=== PATIENT | female | born 1965 | race Caucasian/White ===

== ENCOUNTER 2017-03-08 06:42 | Day surgery (SDC) | payer MEDICARE, MEDICAID ==
[~2017-03-08] VITALS: Ht 152.4 cm; Wt 65.2 kg
[2017-03-08] VITALS (34 sets, daily range): BP systolic 103–143; BP diastolic 58–80; PULSE 54–85; RESP 8–24; TEMP 97.4–97.6; O2SAT 92–100; Ht 152.4 cm; Wt 65.2 kg
[~2017-03-08 06:42] MED LIST: ALBU8.5H INH; ARIP5TAB PO; BUSP15TA3 PO; CITA40TA6 PO; ESTR2TAB23 PO; LEVO88TA7 PO; MELO-267 PO; METF500T4 PO; MIRA50TA PO; PANT40TA27 PO; PHEN100C84 PO; POTA10TA93 PO; PRAV40TA3 PO; SPIR25TA69 PO; TOPI200T45 PO; [UNRECOGNIZED DRUG - CODE] PO; [UNRECOGNIZED DRUG - CODE] PO
--- OUTSIDE RECORDS SUMMARY | 2017-03-08 06:46 | XMS REPORT | Referral Summary ---
Author Author [facility] Organization [facility] Address Unknown Phone Unavailable Care Team Providers Care Phototypesetting Equipment Monitor Name Role Phone No PCP, States Primary Care Physician [phone] Encounter VC Date(s): 07/16/15 - 07/16/15 [facility] [address] [place], [place] [address] Discharge Diagnosis: Microscopic hematuria Discharge Diagnosis: Detrusor instability Discharge Diagnosis: Lumbago Discharge Diagnosis: Lumbago Discharge Diagnosis: Microscopic hematuria Discharge Diagnosis: Detrusor instability Discharge Disposition: 01-Home or Self Care Attending Physician: Biju Manley MD Admitting Physician: Biju Manley MD Vital Signs Most recent to 1 oldest [Reference Range]: Blood Pressure 140/88 mmHg [90-140/60-90 mmHg] (07/16/15 3:44 PM) Problem List Condition Effective Dates Status Health Status Informant Abdominal Active pain(Confirmed) Anxiety(Confirmed) Resolved ASTHMA(Confirmed) Resolved Bladder Active spasms/cramping(Conf irmed) bleeding Active problems(Confirmed) Bronchitis(Confirmed Active ) Chronic Active anxiety(Confirmed) Chronic Active IC(Confirmed) Chronic pelvic pain Active in female(Confirmed) Chronic Active trigonitis(Confirmed ) Constipation(Confirm Active ed) Depression(Confirmed Resolved ) Difficulty in Active urination(Confirmed) small capacity Active bladder(Confirmed) Breath Active shortness(Confirmed) High Active cholesterol(Confirme d) Hyperlipidemia(Confi Resolved rmed) HYPERTENSION(Confirm Resolved ed) Hypothyroidism Active (disorder)(Confirmed ) IBS (irritable bowel Active syndrome)(Confirmed) 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) Irregular heart Active rhythm(Confirmed) Obesity(Confirmed) Active patient Osteoarthritis(Confi Active rmed) Osteoporosis(Confirm Active ed) Peptic ulcer Resolved disease(Confirmed) Personality Resolved disorder(Confirmed) Pituitary Active tumor(Confirmed) Seizure Resolved disorder(Confirmed) Seizures(Confirmed) Active Small bowel Resolved obstruction(Confirme d) Thyroid Active disease/goiter(Confi rmed) Urethral Active stenosis(Confirmed) Urinary Active frequency(Confirmed) Allergies, Adverse Reactions, Alerts Substance Reaction Severity Status penicillin rash Active PHENobarbital patient doesn't feel good Active Medications Abilify 5 mg oral tablet 1.5 tabs, Oral, Daily, # 30 tabs, 0 Refill(s) Start Date: 03/25/14 Status: Ordered benztropine 0.5 mg oral tablet 1 tabs, Oral, Daily, 0 Refill(s) Start Date: 03/25/14 Status: Ordered betaxolol 10 mg oral tablet See Instructions, 0.5 Oral Daily, 0 Refill(s) Start Date: 03/31/14 Status: Ordered busPIRone 30 mg oral tablet 1 tabs, Oral, BID, # 180 tabs, 0 Refill(s) Start Date: 03/25/14 Status: Ordered citalopram 40 mg oral tablet 40 mg 1 tabs, Oral, Daily, # 90 tabs, 0 Refill(s) Start Date: 03/31/15 Status: Ordered Dilantin 100 mg oral capsule, extended release See Instructions, TAKE TWO CAPSULES BY MOUTH TWICE A DAY, # 120 caps, 2 Refill(s ), ALEN, eRx: [facility] #[id number], TAKE TWO CAPSULES BY MOUTH TWICE A DAY Start Date: 03/26/15 Status: Ordered estradiol 2 mg oral tablet See Instructions, TAKE ONE AND ONE-HALF (1 & 1/2) TABLET BY MOUTH DAILY NEED APPOINTMENT BEFORE FURTHER REFILLS, # 45 tabs, eRx: [facility] #[id number], TAKE ONE AND ONE-HALF (1 & 1/2) TABLET BY MOUTH DAILY NEED APPOINTMENT BEFORE FURTHER REFI... Start Date: 10/02/15 Status: Ordered omeprazole 20 mg oral delayed release tablet tabs, Oral, Daily, 0 Refill(s) Start Date: 03/25/14 Status: Ordered potassium chloride 10 mEq oral capsule, extended release 3 caps, Oral, BID, # 180 caps, 0 Refill(s) Start Date: 03/31/14 Status: Ordered Pravachol 20 mg oral tablet 1 tabs, Oral, Daily, # 30 tabs, 0 Refill(s) Start Date: 09/10/14 Status: Ordered spironolactone 25 mg oral tablet See Instructions, TAKE TWO TABLETS BY MOUTH TWICE A DAY, # 240 tabs, eRx: [facility] #[id number], TAKE TWO TABLETS BY MOUTH TWICE A DAY Start Date: 07/01/15 Status: Ordered spironolactone 25 mg oral tablet See Instructions, TAKE TWO TABLETS BY MOUTH TWICE A DAY, # 240 tabs, eRx: [facility] #[id number], TAKE TWO TABLETS BY MOUTH TWICE A DAY Start Date: 05/11/15 Status: Ordered Synthroid 100 mcg (0.1 mg) oral tablet See Instructions, TAKE ONE TABLET BY MOUTH ONCE A DAY, # 30 tabs, 5 Refill(s), ALEN, eRx: [facility] #[id number], TAKE ONE TABLET BY MOUTH ONCE A DAY Start Date: 04/01/15 Status: Ordered tamsulosin 0.4 mg oral capsule 0.4 mg 1 caps, Oral, Bedtime (once a day), # 30 caps, 0 Refill(s), Pharmacy: [facility] #[id number], 1 caps Oral Bedtime (once a day) Start Date: 05/12/15 Status: Ordered Topamax 100 mg oral tablet 1 tabs, Oral, TID, 0 Refill(s) Start Date: 03/25/14 Status: Ordered valACYclovir 1 g oral tablet See Instructions, TAKE TWO TABLETS BY MOUTH TWICE A DAY NEEDS APPT WITH PCP PRIOR TO ADDITIONAL REFILLS, # 8 tabs, 2 Refill(s), Pharmacy: [facility] # [id number], TAKE TWO TABLETS BY MOUTH TWICE A DAY; NEEDS APPT WITH PCP PRIOR TO ADDITIONAL REFILLS Start Date: 07/01/15 Status: Ordered Ventolin HFA 90 mcg/inh inhalation aerosol 2 puffs, Inhalation, q4hr, as needed for wheezing, # 18 g, 2 Refill(s), Pharmacy : [facility] #[id number], 2 puffs Inhalation q4hr,PRN:as needed for wheezing Start Date: 09/17/14 Status: Ordered Results No data available for this section Immunizations Vaccine Date Refusal Reason influenza virus vaccine, inactivated 07/29/14 influenza virus vaccine, live 08/02/13 influenza virus vaccine, live 07/24/12 pneumococcal 23-polyvalent vaccine 08/24/06 Procedures Procedure Date Related Diagnosis Body Site hydrodistention, and SLT laser vaporation 04/30/08 S/P cystoscopy, urethral calibration, and 04/30/08 dilation S/P knee surgery, left 2007 ankle surgery 2003 colon surgery 2001 AL with BSO 2000 S/P knee surgery, right 1982 Appendectomy 1978 Tonsillectomy without adenoidectomy 1966 breast biopsy1 Hysterectomy2 Laparotomy S/P sinus surgery 1x3 2comp 2002 Social History Social History Type Response Smoking Status Never smoker Assessment and Plan Extracted from: Title: Office Visit Note Author: Biju Manley MD Date: 07/16/15 Assessment/Plan 1.Lumbago She agreed to see her new PCP about her back problem. I tried to reassure her that I do not think her painis related to the urinary tract. 3.Detrusor instability I asked her to stop the Vesicareand I gave her samples of Toviaz4 mg daily at bedtime. Risks complications and side effects gone over. She agreed to let me know how that works for her. Follow- up here emphasized. She agreed to return to the officein 2 months time. Around 15 minutes spent todaymostly in discussion.
--- OUTSIDE RECORDS SUMMARY | 2017-03-08 06:46 | XMS REPORT | Referral Summary ---
Author Author [facility] Organization [facility] Address Unknown Phone Unavailable Care Team Providers Care Faculty Research Assistant Name Role Phone No PCP, States Primary Care Physician [phone] Encounter [facility] Date(s): 03/31/15 - 03/31/15 [facility] [address] [place] [address] [facility] Discharge Diagnosis: Hypothyroidism Discharge Diagnosis: Pituitary tumor Discharge Disposition: 01-Home or Self Care Attending Physician: Raymond Tyson MD Admitting Physician: Raymond Tyson MD Vital Signs Most recent to 1 oldest [Reference Range]: Peripheral Pulse 60 bpm Rate [60-100 bpm] (03/31/15 1:50 PM) Blood Pressure 110/60 mmHg [90-140/60-90 mmHg] (03/31/15 1:50 PM) Problem List Condition Effective Dates Status [...] 120 caps, 2 Refill(s ), ALEN, eRx: [facility] #[id number], TAKE TWO CAPSULES BY MOUTH TWICE A DAY Start Date: 03/26/15 Status: Ordered estradiol 2 mg oral tablet See Instructions, TAKE ONE AND ONE-HALF (1 & 1/2) TABLET BY MOUTH DAILY NEED APPOINTMENT BEFORE FURTHER REFILLS, # 45 tabs, eRx: [facility] #[id number], TAKE ONE AND ONE-HALF (1 & 1/2) TABLET BY MOUTH DAILY NEED APPOINTMENT BEFORE FURTHER REFI... Start Date: 07/01/15 Status: Ordered estradiol 2 mg oral tablet See Instructions, TAKE ONE AND ONE-HALF TABLETS BY MOUTH EVERY DAY NEEDS APPT PRIOR TO ADDITIONAL REFILLS, # 45 tabs, 0 Refill(s), Pharmacy: [facility] #[id number], TAKE ONE AND ONE-HALF TABLETS BY MOUTH EVERY DAY; NEEDS APPT PRIOR TO ADDITIONAL... Start Date: 06/08/15 Status: Ordered omeprazole 20 mg oral delayed [...] TWICE A DAY, # 240 tabs, eRx: [facility] #[id number], TAKE TWO TABLETS BY MOUTH TWICE A DAY Start Date: 07/01/15 Status: Ordered spironolactone 25 mg oral tablet See Instructions, TAKE TWO TABLETS BY MOUTH TWICE A DAY, # 240 tabs, eRx: [facility] #[id number], TAKE TWO TABLETS BY MOUTH TWICE A DAY Start Date: 05/11/15 Status: Ordered Synthroid 100 mcg (0.1 mg) oral tablet See Instructions, TAKE ONE TABLET BY MOUTH ONCE A DAY, # 30 tabs, 5 Refill(s), ALEN, eRx: [facility] #[id number], TAKE ONE TABLET BY MOUTH ONCE A DAY Start Date: 04/01/15 Status: Ordered tamsulosin 0.4 mg oral capsule 0.4 mg 1 caps, Oral, Bedtime (once a day), # 30 caps, 0 Refill(s), Pharmacy: [facility] #[id number], 1 caps Oral Bedtime (once a day) Start Date: 05/12/15 Status: Ordered Topamax 100 mg oral tablet 1 tabs, Oral, TID, 0 Refill(s) Start Date: 03/25/14 Status: Ordered valACYclovir 1 g oral tablet See Instructions, TAKE TWO TABLETS BY MOUTH TWICE A DAY NEEDS APPT WITH PCP PRIOR TO ADDITIONAL REFILLS, # 8 tabs, 2 Refill(s), Pharmacy: [facility] # [id number], TAKE TWO TABLETS BY MOUTH TWICE A DAY; NEEDS APPT WITH PCP PRIOR TO ADDITIONAL REFILLS Start Date: 07/01/15 Status: Ordered Ventolin HFA 90 mcg/inh inhalation aerosol 2 puffs, Inhalation, q4hr, as needed for wheezing, # 18 g, 2 Refill(s), Pharmacy : [facility] #[id number], 2 puffs Inhalation q4hr,PRN:as needed for wheezing [...] 2000 S/P knee surgery, right 1982 Appendectomy 1977 Tonsillectomy without adenoidectomy 1966 breast biopsy1 Hysterectomy2 Laparotomy S/P sinus surgery 1x3 2comp 2002 Social History Social History Type Response Smoking Status Never smoker Assessment and Plan Extracted from: Title: Ambulatory Patient Education Author: Raymond Tyson MD Date: 03/31 Family Medicine Hypothyroidism The thyroid is a large gland located in the lower front of your neck. The thyroid gland helps control metabolism. Metabolism is how your body handles food. It controls metabolism with the hormone thyroxine. When this gland is underactive (hypothyroid), it produces too little hormone. CAUSES These include: Absence or destruction of thyroid tissue. Goiter due to iodine deficiency. Goiter due to medications. Congenital defects (since ). Problems with the pituitary. This causes a lack of TSH (thyroid stimulating hormone). This hormone tells the thyroid to returned goods inspector more hormone. SYMPTOMS Lethargy (feeling as though you have no energy) Cold intolerance Weight gain (in spite of normal food intake) Dry skin Coarse hair Menstrual irregularity (if severe, may lead to infertility) Slowing of thought processes Cardiac problems are also caused by insufficient amounts of thyroid hormone. Hypothyroidism in the is cretinism, and is an extreme form. It is important that this form be treated adequately and immediately or it will lead rapidly to retarded physical and mental development. DIAGNOSIS To prove hypothyroidism, your caregiver may do blood tests and ultrasound tests. Sometimes the signs are hidden. It may be necessary for your caregiver to watch this illness with blood tests either before or after diagnosis and treatment. TREATMENT Low levels of thyroid hormone are increased by using synthetic thyroid hormone. This is a safe, effective treatment. It usually takes about four weeks to gain the full effects of the medication. After you have the full effect of the medication, it will generally take another four weeks for problems to leave. Your caregiver may start you on low doses. If you have had heart problems the dose may be gradually increased. It is generally not an emergency to get rapidly to normal. HOME CARE INSTRUCTIONS Take your medications as your caregiver suggests. Let your caregiver know of any medications you are taking or start taking. Your caregiver will help you with dosage schedules. As your condition improves, your dosage needs may increase. It will be necessary to have continuing blood tests as suggested by your caregiver. Report all suspected medication side effects to your caregiver. SEEK MEDICAL CARE IF: Seek medical care if you develop: Sweating. Tremulousness (tremors). Anxiety. Rapid weight loss. Heat intolerance. Emotional swings. Diarrhea. Weakness. SEEK IMMEDIATE MEDICAL CARE IF: You develop chest pain, an irregular heart beat (palpitations ), or a rapid heart beat. MAKE SURE YOU: Understand these instructions. Will watch your condition. Will get help right away if you are not doing well or get worse. Document Released: 10/09/2006 Document Revised: 12/31/2012 Document Reviewed: [facility] Patient Information 2014 [place]. No follow up information was provided. 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 continue same synthroid dose. prolactin is normal. f/u in 1 year. encouraged weight loss and exercise. 2.Hypothyroidism
--- OUTSIDE RECORDS SUMMARY | 2017-03-08 06:47 | XMS REPORT | Referral Summary ---
Author Author [facility] Organization [facility] Address Unknown Phone Unavailable Care Team Providers Care Reeling Machine Operator Name Role Phone PROVIDER, NOTINSYSTEM Primary Care Physician Unavailable Encounter [facility] [id number] Date(s): 03/31/16 - 03/31/16 [facility] [address] [place] [address] [facility] Discharge Diagnosis: Pituitary microadenoma Discharge Diagnosis: Hypothyroidism Discharge Disposition: 01-Home or Self Care Attending Physician: Raymond Tyson MD Admitting Physician: Raymond Tysno MD Vital Signs Most recent to 1 oldest [Reference Range]: Peripheral Pulse 60 bpm Rate [60-100 bpm] (03/31/16 1:47 PM) Blood Pressure 108/76 mmHg [90-140/60-90 mmHg] (03/31/16 1:47 PM) Problem List Condition Effective Dates Status [...] Resolved disease(Confirmed) Personality Resolved disorder(Confirmed) Pituitary Active microadenoma(Confirm ed) Pituitary Active tumor(Confirmed) Seizure Resolved disorder(Confirmed) Seizures(Confirmed) [...] 120 caps, 2 Refill(s ), ALEN, eRx: [facility] #[id number], TAKE TWO CAPSULES BY MOUTH TWICE A DAY Start Date: 03/26/15 Status: Ordered estradiol 2 mg oral tablet See Instructions, TAKE ONE AND ONE-HALF (1 & 1/2) TABLET BY MOUTH DAILY NEED APPOINTMENT BEFORE FURTHER REFILLS, # 45 tabs, eRx: [facility] #[id number], TAKE ONE AND ONE-HALF (1 & 1/2) TABLET BY MOUTH DAILY NEED APPOINTMENT BEFORE FURTHER REFI... Start Date: 10/02/15 Status: Ordered potassium chloride 10 mEq oral capsule, extended release 3 caps, Oral, BID, # 180 caps, 0 Refill(s) Start Date: 03/31/14 Status: Ordered Pravachol 20 mg oral tablet 1 tabs, Oral, Daily, # 30 tabs, 0 Refill(s) Start Date: 09/10/14 Status: Ordered spironolactone 25 mg oral tablet See Instructions, TAKE TWO TABLETS BY MOUTH TWICE A DAY, # 240 tabs, eRx: [facility] #[id number], TAKE TWO TABLETS BY MOUTH TWICE A DAY Start Date: 07/01/15 Status: Ordered spironolactone 25 mg oral tablet See Instructions, TAKE TWO TABLETS BY MOUTH TWICE A DAY, # 240 tabs, eRx: [facility] #[id number], TAKE TWO TABLETS BY MOUTH TWICE A DAY Start Date: 05/11/15 Status: Ordered Synthroid 100 mcg (0.1 mg) oral tablet See Instructions, TAKE ONE TABLET BY MOUTH ONCE A DAY, # 30 tabs, 5 Refill(s), ALEN, eRx: [facility] #[id number], TAKE ONE TABLET BY MOUTH ONCE A DAY Start Date: 04/01/15 Status: Ordered tamsulosin 0.4 mg oral capsule 0.4 mg 1 caps, Oral, Bedtime (once a day), # 30 caps, 0 Refill(s), 1 caps Oral Bedtime (once a day) Start Date: 03/31/16 Status: Ordered Topamax 100 mg oral tablet 1 tabs, Oral, TID, 0 Refill(s) Start Date: 03/25/14 Status: Ordered valACYclovir 1 g oral tablet See Instructions, TAKE TWO TABLETS BY MOUTH TWICE A DAY NEEDS APPT WITH PCP PRIOR TO ADDITIONAL REFILLS, # 8 tabs, 2 Refill(s), Pharmacy: [facility] # [id number], TAKE TWO TABLETS BY MOUTH TWICE A DAY; NEEDS APPT WITH PCP PRIOR TO ADDITIONAL REFILLS Start Date: 07/01/15 Status: Ordered Ventolin HFA 90 mcg/inh inhalation aerosol 2 puffs, Inhalation, q4hr, as needed for wheezing, # 18 g, 2 Refill(s), Pharmacy : [facility] #[id number], 2 puffs Inhalation q4hr,PRN:as needed for wheezing Start Date: 09/17/14 Status: Ordered Results Chemistry Most recent to 1 oldest [Reference Range]: Prolactin [5.2-26.5 9.6 ng/mL ng/mL] (03/31/16 2:21 PM) T4 Free [0.7-1.5 1.0 ng/dL ng/dL] (03/31/16 2:21 PM) TSH [0.35-4.94] 0.08 *LOW* (03/31/16 2:21 PM) Immunizations Vaccine Date Refusal Reason influenza virus [...] Visit Note Author: Raymond Tyson MD Date: 03/31/16 Assessment/Plan 1.Pituitary microadenoma check prolactin. tumor stable on MRI. repeat MRI in 2 years. Ordered: Free T4 Prolactin Level TSH 3rd Generation 2.Hypothyroidism check tsh, ft4. will adjust synthroid dose accordingly. f/ u in 1 year. Ordered: Free T4 Prolactin Level TSH 3rd Generation Orders: tamsulosin, 0.4 mg 1 caps, Oral, Bedtime (once a day), # 30 caps, 0 Refill(s), 1 caps Oral Bedtime (once a day)
--- OUTSIDE RECORDS SUMMARY | 2017-03-08 06:47 | XMS REPORT | Clinical Summary ---
Author Author Admin, E Organization [facility] [employer] Address Unknown Phone Unavailable Allergies, Adverse Reactions, Alerts Allergy Name Reaction Description Start Date Severity Status Provider PHENOBARBITAL Critical Active Ada Sanon MD PENICILLIN Critical Active Ada Sanon MD Conditions or Problems Problem Name Problem Code Onset Date Status Entry Date Provider Comment Standard Description Annotate Overactive Bladder Active Ada Sanon MD Hypertonicity of bladder Medication List Medication Instructions Start Date Stop Date Generic Name NDC Status Provider Patient Instruction MYRBETRIQ 50 MG ORAL [id number] 1 tab by mouth daily MIRABEGRON 44231838106 Active Ada Sanon MD Active POTASSIUM CHLORIDE CR 10 MEQ CPCR 3 capsule by mouth twice daily POTASSIUM CHLORIDE 57013809023 Active Ada Sanon MD Active ESTRADIOL 2 MG ORAL TABS 1 and 1/2 tabs by mouth daily ESTRADIOL 16542304351 Active Ada Sanon MD Active CITALOPRAM HYDROBROMIDE 40 MG ORAL TABS 1 tab by mouth daily CITALOPRAM HYDROBROMIDE 51229476078 Active Ada Sanon MD Active BENZTROPINE MESYLATE 0.5 MG ORAL TABS 2 tabs by mouth daily BENZTROPINE MESYLATE 25354393988 Active Ada Sanon MD Active ABILIFY 5 MG ORAL TABS 1 tab by mouth daily ARIPIPRAZOLE 74008445033 Active Ada Sanon MD Active BUSPIRONE HCL 30 MG ORAL TABS 2 tabs by mouth daily BUSPIRONE HCL 53438907524 Active Ada Sanon MD Active TOPIRAMATE ER 100 MG ORAL CS24 1 tab by mouth three times daily TOPIRAMATE 12813722582 Active Ada Sanon MD Active SPIRONOLACTONE 25 MG TAB 1 tablet by mouth twice daily SPIRONOLACTONE 11725926099 Active Ada Sanon MD Active BETAXOLOL HCL 10 MG ORAL TABS 1/2 tab by mouth daily BETAXOLOL HCL 19968523356 Active Ada Sanon MD Active PRAVASTATIN SODIUM 40 MG TABS 1 po q HS PRAVASTATIN SODIUM 22312007415 Active Ada Sanon MD Active DILANTIN 100 MG CAP 1 cap by mouth twice daily PHENYTOIN SODIUM EXTENDED 41346185480 Active Ada Sanon MD Active PANTOPRAZOLE SODIUM 40 MG TBEC 1 pill by mouth daily PANTOPRAZOLE SODIUM 79526781493 Active Ada Sanon MD Active SYNTHROID 0.088 MG TAB 1 tablet by mouth daily LEVOTHYROXINE SODIUM 89680142544 Active Ada Sanon MD Active Vital Signs Date Name Value Unit Range Description blood pressure, diastolic - 8462-4 70 mm[Hg] BP pearson blood pressure, systolic - 8480-6 125 mm[Hg] BP sys pulse rate E&M - 8867-4 75 /min Heart rate temperature E&M 98.2 [degF] Body temperature weight E&M - 3141-9 150 [lb_av] Weight Measured blood pressure, diastolic - 8462-4 80 mm[Hg] BP pearson blood pressure, systolic - 8480-6 120 mm[Hg] BP sys height E&M - 8302-2 59 [in_us] Bdy height pulse rate E&M - 8867-4 88 /min Heart rate temperature E&M 98.1 [degF] Body temperature weight E&M - 3141-9 145 [lb_av] Weight Measured Diagnostic Results Date Name Value Unit Range Description Office Visit: [facility]-Incontinence - Chemistry RBC, urine, dipstick negative protein, total urine random negative mg/dL Office Visit: [facility]-Incontinence - Urinalysis urinalysis, routine Clean Catch culture status No specific gravity, urine 1.030 pH, urine, semiquantitative 5 ketones, urine, by test strip negative bilirubin, urine negative glucose, urine, semiquantitative negative urine color yellow appearance, urine clear leukocyte esterase, urine, by dipstick negative nitrite, urine, semiquantitative negative urobilinogen, urine, semiquantitative (dipstick) 0.2 protein, urine, semiquantitative (dipstick) negative Encounters Code Encounter Date Provider Facility CPT-83062 Level 3 Est. Patient 16:32:49 FINANCIAL EXAMINER Ada Sanon MD [facility] CPT-65372 Level 3 New Patient 15:57:26 CDT Ada Sanon MD [facility] Procedures Code Procedure Name Date Entry Date Standard Description CPT-81347 Urine Dip (Floor Use Only) 15:57:26 CDT CPT-93123 Bladder Scan 15:57:26 CDT
--- OUTSIDE RECORDS SUMMARY | 2017-03-08 06:47 | XMS REPORT | Referral Summary ---
Author Author [facility] Organization [facility] Address Unknown Phone Unavailable Care Team Providers Care Lay Health Advocate Name Role Phone No PCP, States Primary Care Physician [phone] Encounter VC Date(s): 03/31/15 - 03/31/15 [facility] [address] [place] [address] [facility] Discharge Diagnosis: Hypothyroidism Discharge Diagnosis: [...] ALEN, eRx: [facility] #[id number], TAKE TWO CAPSULES BY MOUTH TWICE A DAY Start Date: 03/26/15 Status: Ordered estradiol 2 mg oral tablet See Instructions, TAKE ONE AND ONE-HALF (1 & 1/2) TABLET BY MOUTH DAILY NEED APPOINTMENT BEFORE FURTHER REFILLS, # 45 tabs, eRx: [facility] #[id number], TAKE ONE AND ONE-HALF (1 & 1/2) TABLET BY MOUTH DAILY NEED APPOINTMENT BEFORE FURTHER REFI... Start Date: 07/01/15 Status: Ordered estradiol 2 mg oral tablet See Instructions, TAKE ONE AND ONE-HALF TABLETS BY MOUTH EVERY DAY NEEDS APPT PRIOR TO ADDITIONAL REFILLS, # 45 tabs, 0 Refill(s), Pharmacy: [facility] #[id number], TAKE ONE AND ONE-HALF TABLETS BY MOUTH [...] tabs, eRx: [facility] #[id number], TAKE TWO TABLETS BY MOUTH TWICE A DAY Start Date: 07/01/15 Status: Ordered spironolactone 25 mg oral tablet See Instructions, TAKE TWO TABLETS BY MOUTH TWICE A DAY, # 240 tabs, eRx: [facility] #[id number], TAKE TWO TABLETS BY MOUTH TWICE A DAY Start Date: 05/11/15 Status: Ordered Synthroid 100 mcg (0.1 mg) oral tablet See Instructions, TAKE ONE TABLET BY MOUTH ONCE A DAY, # 30 tabs, 5 Refill(s), ALEN, eRx: [facility] #[id number], TAKE ONE TABLET BY MOUTH ONCE A DAY Start Date: 04/01/15 Status: Ordered tamsulosin 0.4 mg oral capsule 0.4 mg 1 caps, Oral, Bedtime (once a day), # 30 caps, 0 Refill(s), Pharmacy: [facility] #[id number], 1 caps Oral Bedtime (once a day) Start Date: 05/12/15 Status: Ordered Topamax 100 mg oral tablet 1 tabs, Oral, TID, 0 Refill(s) Start Date: 03/25/14 Status: Ordered valACYclovir 1 g oral tablet See Instructions, TAKE TWO TABLETS BY MOUTH TWICE A DAY NEEDS APPT WITH PCP PRIOR TO ADDITIONAL REFILLS, # 8 tabs, 2 Refill(s), Pharmacy: [facility] # [id number], TAKE TWO TABLETS BY MOUTH TWICE A DAY; NEEDS APPT WITH PCP PRIOR TO ADDITIONAL REFILLS Start Date: 07/01/15 Status: Ordered Ventolin HFA 90 mcg/inh inhalation aerosol 2 puffs, Inhalation, q4hr, as needed for wheezing, # 18 g, 2 Refill(s), Pharmacy : [facility] #[id number], 2 puffs Inhalation q4hr,PRN:as needed for wheezing [...] hormone). 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 SYMPTOMS Lethargy (feeling as though [...] Released: 10/09/2006 Document Revised: 12/31/2012 Document Reviewed: [facility] Patient Information 2014 [employer]. No follow up information was provided. 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 continue same synthroid dose. prolactin is normal. f/u in 1 year. encouraged weight loss and exercise. 2.Hypothyroidism
--- OUTSIDE RECORDS SUMMARY | 2017-03-08 06:47 | XMS REPORT | Continuity of Care Document ---
Author Author [facility] Organization [facility] Address Unknown Phone Unavailable Allergies Medications Problems Procedures Results Encounters ACCT No. Visit Date/Time Discharge Status Pt. Type Provider Facility Loc./Unit Complaint [id number] 01/20/2014 15:01:00 01/20/2014 23 :59:59 CLS Outpatient [id number] 01/10/2014 15:26:00 01/10/2014 23 :59:59 CLS Outpatient
--- OUTSIDE RECORDS SUMMARY | 2017-03-08 06:47 | XMS REPORT | Clinical Summary ---
Author Author Admin, E Organization [facility] Address Unknown Phone Unavailable Allergies, Adverse Reactions, [...] Provider Patient Instruction MYRBETRIQ 50 MG ORAL [id number] 1 tab by mouth daily MIRABEGRON 75486950898 Active Ada Sanon MD Active POTASSIUM CHLORIDE CR 10 MEQ CPCR 3 capsule by mouth twice daily POTASSIUM CHLORIDE 23293443860 Active Ada Sanon MD Active ESTRADIOL 2 MG ORAL TABS 1 and 1/2 tabs by mouth daily ESTRADIOL 31340982090 Active Ada Sanon MD Active CITALOPRAM HYDROBROMIDE 40 MG ORAL TABS 1 tab by mouth daily CITALOPRAM HYDROBROMIDE 26962697713 Active Ada Sanon MD Active BENZTROPINE MESYLATE 0.5 MG ORAL TABS 2 tabs by mouth daily BENZTROPINE MESYLATE 32936601553 Active Ada Sanon MD Active ABILIFY 5 MG ORAL TABS 1 tab by mouth daily ARIPIPRAZOLE 59494880353 Active Ada Sanon MD Active BUSPIRONE HCL 30 MG ORAL TABS 2 tabs by mouth daily BUSPIRONE HCL 29641075761 Active Ada Sanon MD Active TOPIRAMATE ER 100 MG ORAL CS24 1 tab by mouth three times daily TOPIRAMATE 26931450239 Active Ada Sanon MD Active SPIRONOLACTONE 25 MG TAB 1 tablet by mouth twice daily SPIRONOLACTONE 63490767903 Active Ada Sanon MD Active BETAXOLOL HCL 10 MG ORAL TABS 1/2 tab by mouth daily BETAXOLOL HCL 50404460222 Active Ada Sanon MD Active PRAVASTATIN SODIUM 40 MG TABS 1 po q HS PRAVASTATIN SODIUM 81435708959 Active Ada Sanon MD Active DILANTIN 100 MG CAP 1 cap by mouth twice daily PHENYTOIN SODIUM EXTENDED 18849476663 Active Ada Sanon MD Active PANTOPRAZOLE SODIUM 40 MG TBEC 1 pill by mouth daily PANTOPRAZOLE SODIUM 60912891686 Active Ada Sanon MD Active SYNTHROID 0.088 MG TAB 1 tablet by mouth daily LEVOTHYROXINE SODIUM 36175353684 Active Ada Sanon MD Active Vital Signs [...] negative Encounters Code Encounter Date Provider Facility CPT-92126 Level 3 Est. 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
--- OUTSIDE RECORDS SUMMARY | 2017-03-08 06:47 | XMS REPORT | Referral Summary ---
Author Author [facility] Organization [facility] Address Unknown Phone Unavailable Care Team Providers Care Entry Table Operator Name Role Phone No PCP, States Primary Care Physician [phone] Encounter VC Date(s): 03/31/15 - 03/31/15 [facility] [address] [place] [address] [facility] Discharge Diagnosis: Hypothyroidism Discharge Diagnosis: Pituitary tumor [...] 120 caps, 2 Refill(s ), ALEN, eRx: [facility] #[id number], TAKE TWO CAPSULES BY MOUTH TWICE A DAY Start Date: 03/26/15 Status: Ordered estradiol 2 mg oral tablet See Instructions, TAKE ONE AND ONE-HALF (1 & 1/2) TABLET BY MOUTH DAILY NEED APPOINTMENT BEFORE FURTHER REFILLS, # 45 tabs, eRx: [facility] #[id number], TAKE ONE AND ONE-HALF (1 & 1/2) TABLET BY MOUTH DAILY NEED APPOINTMENT BEFORE FURTHER REFI... Start Date: 07/01/15 Status: Ordered estradiol 2 mg oral tablet See Instructions, TAKE ONE AND ONE-HALF TABLETS BY MOUTH EVERY DAY NEEDS APPT PRIOR TO ADDITIONAL REFILLS, # 45 tabs, 0 Refill(s), Pharmacy: [facility] #[id number], TAKE ONE AND ONE-HALF TABLETS BY MOUTH [...] TWICE A DAY, # 240 tabs, eRx: [facility] #[id number], TAKE TWO TABLETS BY MOUTH TWICE A DAY Start Date: 07/01/15 Status: Ordered spironolactone 25 mg oral tablet See Instructions, TAKE TWO TABLETS BY MOUTH TWICE A DAY, # 240 tabs, eRx: [facility] #[id number], TAKE TWO TABLETS BY MOUTH TWICE A DAY Start Date: 05/11/15 Status: Ordered Synthroid 100 mcg (0.1 mg) oral tablet See Instructions, TAKE ONE TABLET BY MOUTH ONCE A DAY, # 30 tabs, 5 Refill(s), ALEN, eRx: [facility] #[id number], TAKE ONE TABLET BY MOUTH ONCE A DAY Start Date: 04/01/15 Status: Ordered tamsulosin 0.4 mg oral capsule 0.4 mg 1 caps, Oral, Bedtime (once a day), # 30 caps, 0 Refill(s), Pharmacy: [facility] #[id number], 1 caps Oral Bedtime (once a day) Start Date: 05/12/15 Status: Ordered Topamax 100 mg oral tablet 1 tabs, Oral, TID, 0 Refill(s) Start Date: 03/25/14 Status: Ordered valACYclovir 1 g oral tablet See Instructions, TAKE TWO TABLETS BY MOUTH TWICE A DAY NEEDS APPT WITH PCP PRIOR TO ADDITIONAL REFILLS, # 8 tabs, 2 Refill(s), Pharmacy: [facility] # [id number], TAKE TWO TABLETS BY MOUTH TWICE A DAY; NEEDS APPT WITH PCP PRIOR TO ADDITIONAL REFILLS Start Date: 07/01/15 Status: Ordered Ventolin HFA 90 mcg/inh inhalation aerosol 2 puffs, Inhalation, q4hr, as needed for wheezing, # 18 g, 2 Refill(s), Pharmacy : [facility] #[id number], 2 puffs Inhalation q4hr,PRN:as needed for wheezing [...] hormone). This hormone tells the thyroid to metal turner more hormone. SYMPTOMS Lethargy (feeling as though [...] Released: 10/09/2006 Document Revised: 12/31/2012 Document Reviewed: [facility] Patient Information 2014 [employer]. No follow up information was provided. 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 continue same synthroid dose. prolactin is normal. f/u in 1 year. encouraged weight loss and exercise. 2.Hypothyroidism
--- OUTSIDE RECORDS SUMMARY | 2017-03-08 06:47 | XMS REPORT | Referral Summary ---
Author Organization Unknown Address Unknown Phone Unavailable Care Team Providers Care Cloth Carrier Name Role Phone Jesus Dozier Primary Care Physician [phone] Encounter VC Date(s): 12/12/14 - 12/12/14 [facility], [place] [address] [place] [address] Discharge Disposition: Home or Self Care Attending Physician: Ruperto Dozier MD Admitting Physician: Ruperto Dozier MD Vital Signs Most recent to 1 oldest [Reference Range]: Blood Pressure 120/74 mmHg [90-140/60-90 mmHg] (12/12/14 1:45 PM) Problem List Condition Effective Dates Status [...] Active mental condition(Confirmed) Irregular heart Active rhythm(Confirmed) Osteoarthritis(Confi Active rmed) Osteoporosis(Confirm Active ed) Peptic [...] See Instructions, 0.5 Oral Daily, 0 Refill(s) Special Instructions: 0.5 Oral Daily Start Date: 03/31/14 Status: Ordered busPIRone 30 mg oral tablet 1 tabs, Oral, BID, # 180 tabs, 0 Refill(s) Start Date: 03/25/14 Status: Ordered citalopram 20 mg oral tablet 1 tabs, Oral, Daily, # 30 tabs, 0 Refill(s) Start Date: 03/25/14 Status: Ordered CPAP Machine (DME) DME Item at bedtime, See Instructions, # 1 Each, 0 Refill(s), Supply Special Instructions: at bedtime Start Date: 10/06/14 Status: Ordered Dilantin 100 mg oral capsule, extended release See Instructions, TAKE TWO CAPSULES BY MOUTH TWICE A DAY, # 120 caps, ALEN, eRx: [facility] #[id number], TAKE TWO CAPSULES BY MOUTH TWICE A DAY Special Instructions: TAKE TWO CAPSULES BY MOUTH TWICE A DAY Start Date: 11/24/14 Status: Ordered estradiol 2 mg oral tablet See Instructions, TAKE ONE AND ONE-HALF TABLETS BY MOUTH EVERY DAY, # 45 tabs, 2 Refill(s), eRx: [facility] #[id number], TAKE ONE AND ONE-HALF TABLETS BY MOUTH EVERY DAY Special Instructions: TAKE ONE AND ONE-HALF TABLETS BY MOUTH EVERY DAY Start Date: 10/06/14 Status: Ordered Flomax 0.4 mg oral capsule See Instructions, TAKE ONE CAPSULE BY MOUTH EVERY NIGHT AT BEDTIME, # 30 caps, 2 Refill(s), eRx: [facility] #[id number], TAKE ONE CAPSULE BY MOUTH EVERY NIGHT AT BEDTIME Special Instructions: TAKE ONE CAPSULE BY MOUTH EVERY NIGHT AT BEDTIME Start Date: 11/06/14 Status: Ordered omeprazole 20 mg oral delayed [...] MOUTH TWICE A DAY, # 240 tabs, 2 Refill(s) , eRx: [facility] #[id number], TAKE TWO TABLETS BY MOUTH TWICE A DAY Special Instructions: TAKE TWO TABLETS BY MOUTH TWICE A DAY Start Date: 11/06/14 Status: Ordered Synthroid 100 mcg (0.1 mg) oral tablet See Instructions, TAKE ONE TABLET BY MOUTH EVERY DAY, # 30 tabs, 6 Refill(s), ALEN, eRx: [facility] #[id number], TAKE ONE TABLET BY MOUTH EVERY DAY Special Instructions: TAKE ONE TABLET BY MOUTH EVERY DAY Start Date: 06/03/14 Status: Ordered Topamax 100 mg oral tablet 1 tabs, Oral, TID, 0 Refill(s) Start Date: 03/25/14 Status: Ordered valACYclovir 1 g oral tablet 2 tabs, Oral, BID, # 8 tabs, 0 Refill(s), Pharmacy: [facility] #[id number], 2 tabs Oral BID Start Date: 12/12/14 Status: Ordered Ventolin HFA 90 mcg/inh inhalation aerosol 2 puffs, Inhalation, q4hr, as needed for wheezing, # 18 g, 2 Refill(s), Pharmacy : [facility] #[id number], 2 puffs Inhalation q4hr,PRN:as needed for wheezing Start Date: 09/17/14 Status: Ordered Zithromax Z-Dilip 250 mg oral tablet 1 packets, Oral, Daily, as directed on package labeling, X 5 days, # 6 tabs, 1 Refill(s), Pharmacy: [facility] #[id number], 1 packets Oral Daily,x5 days, Instr:as directed on package labeling Special Instructions: as directed on package labeling Start Date: 12/12/14 Stop Date: 12/22/14 Status: Ordered Results No data available for this section Immunizations Vaccine Date Refusal Reason influenza virus vaccine, inactivated 10/7/14 influenza virus vaccine, live 08/02/13 influenza virus [...] Smoking Status Never smoker Assessment and Plan No data available for this section
--- OUTSIDE RECORDS SUMMARY | 2017-03-08 06:47 | XMS REPORT | Referral Summary ---
Author Author [facility] Organization [facility] Address Unknown Phone Unavailable Care Team Providers Care Material Cutter Name Role Phone No PCP, States Primary Care Physician [phone] Encounter VC Date(s): 08/10/15 - 08/10/15 [facility] [address] [place], [place] [address] Discharge Diagnosis: Constipation Discharge Diagnosis: Loss of weight Discharge Disposition: 01-Home or Self Care Attending Physician: Milagro Gonzalez MD Admitting Physician: Milagro Gonzalez MD Vital Signs Most recent to 1 oldest [Reference Range]: Peripheral Pulse 72 bpm Rate [60-100 bpm] (08/10/15 2:30 PM) Blood Pressure 122/82 mmHg [90-140/60-90 mmHg] (08/10/15 2:30 PM) Problem List Condition Effective Dates Status [...] 120 caps, 2 Refill(s ), ALEN, eRx: [facility] #[id number], TAKE TWO CAPSULES BY MOUTH TWICE A DAY Start Date: 03/26/15 Status: Ordered estradiol 2 mg oral tablet See Instructions, TAKE ONE AND ONE-HALF (1 & 1/2) TABLET BY MOUTH DAILY NEED APPOINTMENT BEFORE FURTHER REFILLS, # 45 tabs, eRx: [facility] #[id number], TAKE ONE AND ONE-HALF (1 & 1/2) [...] TWICE A DAY, # 240 tabs, eRx: [facility] #[id number], TAKE TWO TABLETS BY MOUTH TWICE A DAY Start Date: 07/01/15 Status: Ordered spironolactone 25 mg oral tablet See Instructions, TAKE TWO TABLETS BY MOUTH TWICE A DAY, # 240 tabs, eRx: [facility] #[id number], TAKE TWO TABLETS BY MOUTH TWICE A DAY Start Date: 05/11/15 Status: Ordered Synthroid 100 mcg (0.1 mg) oral tablet See Instructions, TAKE ONE TABLET BY MOUTH ONCE A DAY, # 30 tabs, 5 Refill(s), ALEN, eRx: [facility] #[id number], TAKE ONE TABLET BY MOUTH ONCE A DAY Start Date: 04/01/15 Status: Ordered tamsulosin 0.4 mg oral capsule 0.4 mg 1 caps, Oral, Bedtime (once a day), # 30 caps, 0 Refill(s), Pharmacy: [facility] #[id number], 1 caps Oral Bedtime (once a day) Start Date: 05/12/15 Status: Ordered Topamax 100 mg oral tablet 1 tabs, Oral, TID, 0 Refill(s) Start Date: 03/25/14 Status: Ordered valACYclovir 1 g oral tablet See Instructions, TAKE TWO TABLETS BY MOUTH TWICE A DAY NEEDS APPT WITH PCP PRIOR TO ADDITIONAL REFILLS, # 8 tabs, 2 Refill(s), Pharmacy: [facility] # [id number], TAKE TWO TABLETS BY MOUTH TWICE A DAY; NEEDS APPT WITH PCP PRIOR TO ADDITIONAL REFILLS Start Date: 07/01/15 Status: Ordered Ventolin HFA 90 mcg/inh inhalation aerosol 2 puffs, Inhalation, q4hr, as needed for wheezing, # 18 g, 2 Refill(s), Pharmacy : [facility] #[id number], 2 puffs Inhalation q4hr,PRN:as needed for wheezing [...] Extracted from: Title: Office Visit Note Author: Milagro Gonzalez MD Date: 08/10/15 Assessment/Plan 1.Constipation Discussed with patientabout the importance of fiberand that she requires fiber supplementation to add bulk to her stool. Discussed that shedoes not need to take stool softeners or milk of magnesia as she is having soft stools daily. Counseled at length about high-fiber dietand need forfiber supplementation. She will take Metamucil 2 times a day for 2 weeks. If no improvement in symptoms, she will add MiraLAXonce daily. I encouraged the patient to eatwelland reassured her thatit will not worsen her symptoms. 2.Loss of weight This patient has hadsome weight loss over the last 2 monthsand her says that she hasn't been eating muchbecause she is worried about the constipation. I have encouraged the patient to eat well. She does not have any other alarm symptoms likehematochezia or melena. Colonoscopy was just 1 year ago. She also had abdomen and pelvis CT a year ago. We will monitor her weight for now. I have asked her to return to clinic in 2 months. If there is continued weight loss, shemay needfurther workupwith EGD, thyroid testing etc. Total time spent with the patient was25 minutes and more than 50 percent of the time was crwx-qm-wtcl counseling. Extracted from: Title: Ambulatory Patient Education Author: Milagro Gonzalez MD Date: Family Medicine High-Fiber Diet Fiber is found in fruits, vegetables, and grains. A high-fiber diet encourages the addition of more whole grains, legumes, fruits, and vegetables in your diet. The recommended amount of fiber for adult males is 38 g per day. For adult females, it is 25 g per day. and lactating women should get 28 g of fiber per day. If you have a digestive or bowel problem, ask your caregiver for advice before adding high-fiber foods to your diet. Eat a variety of high- fiber foods instead of only a select few type of foods. PURPOSE To increase stool bulk. To make bowel movements more regular to prevent constipation. To lower cholesterol. To prevent overeating. WHEN IS THIS DIET USED? It may be used if you have constipation and hemorrhoids. It may be used if you have uncomplicated diverticulosis (intestine condition) and irritable bowel syndrome. It may be used if you need help with weight management. It may be used if you want to add it to your diet as a protective measure against atherosclerosis, diabetes, and cancer. SOURCES OF FIBER Whole-grain breads and cereals. Fruits, such as apples, oranges, bananas, berries, prunes, and pears. Vegetables, such as green peas, carrots, sweet potatoes, beets, broccoli, cabbage, spinach, and artichokes. Legumes, such split peas, soy, lentils. Almonds. FIBER CONTENT IN FOODS Starches and Grains / Dietary Fiber (g) Cheerios, 1 cup / 3 g [place] Flakes cereal, 1 cup / 0.7 g Rice crispy treat cereal, 1 cup / 0.3 g Instant oatmeal (cooked), cup / 2 g Frosted wheat cereal, 1 cup / 5.1 g Brown, long-grain rice (cooked), 1 cup / 3.5 g White, long-grain rice (cooked), 1 cup / 0.6 g Enriched macaroni (cooked), 1 cup / 2.5 g Legumes / Dietary Fiber (g) Baked beans (canned, plain, or vegetarian), cup / 5.2 g Kidney beans (canned), cup / 6.8 g Jain beans (cooked), cup / 5.5 g Breads and Crackers / Dietary Fiber (g) Plain or honey spencer crackers, 2 squares / 0.7 g Saltine crackers, 3 squares / 0.3 g Plain, salted pretzels, 10 pieces / 1.8 g Whole-wheat bread, 1 slice / 1.9 g White bread, 1 slice / 0.7 g Raisin bread, 1 slice / 1.2 g Plain bagel, 3 oz / 2 g Flour tortilla, 1 oz / 0.9 g [place] tortilla, 1 small / 1.5 g Hamburger or hotdog bun, 1 small / 0.9 g Fruits / Dietary Fiber (g) Apple with skin, 1 medium / 4.4 g Sweetened applesauce, cup / 1.5 g Banana, medium / 1.5 g Grapes, 10 grapes / 0.4 g [place], 1 small / 2.3 g Raisin, 1.5 oz / 1.6 g Melon, 1 cup / 1.4 g Vegetables / Dietary Fiber (g) Green beans (canned), cup / 1.3 g Carrots (cooked), cup / 2.3 g Broccoli (cooked), cup / 2.8 g Peas (cooked), cup / 4.4 g Mashed potatoes, cup / 1.6 g Lettuce, 1 cup / 0.5 g [place] (canned), cup / 1.6 g Tomato, cup / 1.1 g Document Released: 10/09/2006 Document Revised: 04/09/2013 Document Reviewed: [employer] Patient Information 2015 [employer] [facility]. This information is not intended to replace advice given to you by your health care provider. Make sure you discuss any questions you have with your health care provider. Constipation Constipation is when a person has fewer than three bowel movements a week, has difficulty having a bowel movement, or has stools that are dry, hard, or larger than normal. As people grow older, constipation is more common. If you try to fix constipation with medicines that make you have a bowel movement (laxatives) , the problem may get worse. Long-term laxative use may cause the muscles of the colon to become weak. A low-fiber diet, not taking in enough fluids, and taking certain medicines may make constipation worse. CAUSES Certain medicines, such as antidepressants, pain medicine, iron supplements , antacids, and water pills. Certain diseases, such as diabetes, irritable bowel syndrome (IBS), thyroid disease, or depression. Not drinking enough water. Not eating enough fiber-rich foods. Stress or travel. Lack of physical activity or exercise. Ignoring the urge to have a bowel movement. Using laxatives too much. SIGNS AND SYMPTOMS Having fewer than three bowel movements a week. Straining to have a bowel movement. Having stools that are hard, dry, or larger than normal. Feeling full or bloated. Pain in the lower abdomen. Not feeling relief after having a bowel movement. DIAGNOSIS Your health care provider will take a medical history and perform a physical exam. Further testing may be done for severe constipation. Some tests may include: A barium enema X-ray to examine your rectum, colon, and, sometimes, your small intestine. A sigmoidoscopy to examine your lower colon. A colonoscopy to examine your entire colon. TREATMENT Treatment will depend on the severity of your constipation and what is causing it. Some dietary treatments include drinking more fluids and eating more fiber- rich foods. Lifestyle treatments may include regular exercise. If these diet and lifestyle recommendations do not help, your health care provider may recommend taking lwte-zuy-trnsxbm laxative medicines to help you have bowel movements. Prescription medicines may be prescribed if jfut-itk-yamvyer medicines do not work. HOME CARE INSTRUCTIONS Eat foods that have a lot of fiber, such as fruits, vegetables, whole grains, and beans. Limit foods high in fat and processed sugars, such as mohawk fries, hamburgers, cookies, candies, and soda. A fiber supplement may be added to your diet if you cannot get enough fiber from foods. Drink enough fluids to keep your urine clear or pale yellow. Exercise regularly or as directed by your health care provider. Go to the restroom when you have the urge to go. Do not hold it. Only take oina-vng-dfqneig or prescription medicines as directed by your health care provider. Do not take other medicines for constipation without talking to your health care provider first. SEEK IMMEDIATE MEDICAL CARE IF: You have bright red blood in your stool. Your constipation lasts for more than 4 days or gets worse. You have abdominal or rectal pain. You have thin, pencil-like stools. You have unexplained weight loss. MAKE SURE YOU: Understand these instructions. Will watch your condition. Will get help right away if you are not doing well or get worse. Document Released: 07/07/2005 Document Revised: 10/14/2014 Document Reviewed: [facility] Patient Information 2015 [employer]. This information is not intended to replace advice given to you by your health care provider. Make sure you discuss any questions you have with your health care provider. No follow up information was provided.
--- OUTSIDE RECORDS SUMMARY | 2017-03-08 06:47 | XMS REPORT | Referral Summary ---
Author Author [facility] Organization [facility] Address Unknown Phone Unavailable Care Team Providers Care Salmon Gillnet Vessel Operator Name Role Phone No PCP, States Primary Care Physician [phone] Encounter VC Date(s): 03/31/15 - 03/31/15 [facility] [address] [place] [address] [facility] Discharge Diagnosis: Hypothyroidism Discharge Diagnosis: Pituitary [...] 120 caps, 2 Refill(s ), ALEN, eRx: [facility] #[id number], TAKE TWO CAPSULES BY MOUTH TWICE A DAY Start Date: 03/26/15 Status: Ordered estradiol 2 mg oral tablet See Instructions, TAKE ONE AND ONE-HALF (1 & 1/2) TABLET BY MOUTH DAILY NEED APPOINTMENT BEFORE FURTHER REFILLS, # 45 tabs, eRx: [facility] #[id number], TAKE ONE AND ONE-HALF (1 & 1/2) [...] TWICE A DAY, # 240 tabs, eRx: [facility] #[id number], TAKE TWO TABLETS BY MOUTH TWICE A DAY Start Date: 07/01/15 Status: Ordered spironolactone 25 mg oral tablet See Instructions, TAKE TWO TABLETS BY MOUTH TWICE A DAY, # 240 tabs, eRx: [facility] #[id number], TAKE TWO TABLETS BY MOUTH TWICE A DAY Start Date: 05/11/15 Status: Ordered Synthroid 100 mcg (0.1 mg) oral tablet See Instructions, TAKE ONE TABLET BY MOUTH ONCE A DAY, # 30 tabs, 5 Refill(s), ALEN, eRx: [facility] #[id number], TAKE ONE TABLET BY MOUTH ONCE A DAY Start Date: 04/01/15 Status: Ordered tamsulosin 0.4 mg oral capsule 0.4 mg 1 caps, Oral, Bedtime (once a day), # 30 caps, 0 Refill(s), Pharmacy: [facility] #[id number], 1 caps Oral Bedtime (once a day) Start Date: 05/12/15 Status: Ordered Topamax 100 mg oral tablet 1 tabs, Oral, TID, 0 Refill(s) Start Date: 03/25/14 Status: Ordered valACYclovir 1 g oral tablet See Instructions, TAKE TWO TABLETS BY MOUTH TWICE A DAY NEEDS APPT WITH PCP PRIOR TO ADDITIONAL REFILLS, # 8 tabs, 2 Refill(s), Pharmacy: [facility] # [id number], TAKE TWO TABLETS BY MOUTH TWICE A DAY; NEEDS APPT WITH PCP PRIOR TO ADDITIONAL REFILLS Start Date: 07/01/15 Status: Ordered Ventolin HFA 90 mcg/inh inhalation aerosol 2 puffs, Inhalation, q4hr, as needed for wheezing, # 18 g, 2 Refill(s), Pharmacy : [facility] #[id number], 2 puffs Inhalation q4hr,PRN:as needed for wheezing [...] hormone). This hormone tells the thyroid to last turner more hormone. SYMPTOMS Lethargy (feeling as [...] Released: 10/09/2006 Document Revised: 12/31/2012 Document Reviewed: [facility] Patient Information 2014 [place]. No follow up information was provided. 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 continue same synthroid dose. prolactin is normal. f/u in 1 year. encouraged weight loss and exercise. 2.Hypothyroidism
--- OUTSIDE RECORDS SUMMARY | 2017-03-08 06:47 | XMS REPORT | Referral Summary ---
Author Author [facility], [facility] Organization [facility] Address Unknown Phone Unavailable Care Team Providers Care Police Magistrate Name Role Phone No PCP, States Primary Care Physician [phone] Encounter Date(s): 05/06/15 - 05/06/15 [facility] [address] [place] [address] Discharge Diagnosis: Well female exam with routine gynecological exam Discharge Diagnosis: Nocturia Discharge Diagnosis: Nipple discharge Discharge Diagnosis: Dysuria Discharge Diagnosis: Vaginal discomfort Discharge Disposition: -Home or Self Care Attending Physician: Maritza Cochran APRN Admitting Physician: Maritza Cochran APRN Vital Signs Most recent to 1 oldest [Reference Range]: Peripheral Pulse 72 bpm Rate [60-100 bpm] (05/06/15 10:15 AM) Blood Pressure 126/78 mmHg [90-140/60-90 mmHg] (05/06/15 10:15 AM) Problem List Condition Effective Dates Status Health [...] 120 caps, 2 Refill(s ), ALEN, [facility] #[id number], TAKE TWO CAPSULES BY MOUTH TWICE A DAY Start Date: 03/26/15 Status: Ordered estradiol 2 mg oral tablet See Instructions, TAKE ONE AND ONE-HALF (1 & 1/2) TABLET BY MOUTH DAILY NEED APPOINTMENT BEFORE FURTHER REFILLS, # 45 tabs, [facility] #[id number], TAKE ONE AND ONE-HALF (1 & 1/2) [...] TWICE A DAY, # 240 tabs, eRx: [facility] #[id number], TAKE TWO TABLETS BY MOUTH TWICE A DAY Start Date: 07/01/15 Status: Ordered spironolactone 25 mg oral tablet See Instructions, TAKE TWO TABLETS BY MOUTH TWICE A DAY, # 240 tabs, eRx: [facility] #[id number], TAKE TWO TABLETS BY MOUTH TWICE A DAY Start Date: 05/11/15 Status: Ordered Synthroid 100 mcg (0.1 mg) oral tablet See Instructions, TAKE ONE TABLET BY MOUTH ONCE A DAY, # 30 tabs, 5 Refill(s), ALEN, eRx: [facility] #[id number], TAKE ONE TABLET BY MOUTH ONCE A DAY Start Date: 04/01/15 Status: Ordered tamsulosin 0.4 mg oral capsule 0.4 mg 1 caps, Oral, Bedtime (once a day), # 30 caps, 0 Refill(s), Pharmacy: [facility] #[id number], 1 caps Oral Bedtime (once a day) Start Date: 05/12/15 Status: Ordered Topamax 100 mg oral tablet 1 tabs, Oral, TID, 0 Refill(s) Start Date: 03/25/14 Status: Ordered valACYclovir 1 g oral tablet See Instructions, TAKE TWO TABLETS BY MOUTH TWICE A DAY NEEDS APPT WITH PCP PRIOR TO ADDITIONAL REFILLS, # 8 tabs, 2 Refill(s), Pharmacy: [facility] # [id number], TAKE TWO TABLETS BY MOUTH TWICE A DAY; NEEDS APPT WITH PCP PRIOR TO ADDITIONAL REFILLS Start Date: 07/01/15 Status: Ordered Ventolin HFA 90 mcg/inh inhalation aerosol 2 puffs, Inhalation, q4hr, as needed for wheezing, # 18 g, 2 Refill(s), Pharmacy : [facility] #[id number], 2 puffs Inhalation q4hr,PRN:as needed for wheezing Start Date: 09/17/14 Status: Ordered Results Microbiology Reports TEST: Genital Culture STATUS: Auth (Verified) BODY SITE: SOURCE: Vaginal COLLECTED DATE/TIME: 05/06/15 11:21 AM Genital Culture No pathogens isolated Normal vaginal nitish present Immunizations Vaccine Date Refusal Reason influenza virus [...]
--- OUTSIDE RECORDS SUMMARY | 2017-03-08 06:48 | XMS REPORT | Referral Summary ---
Author Author [facility] Organization [facility] Address Unknown Phone Unavailable Care Team Providers Care Med Aide Name Role Phone Jesus Dozier Primary Care Physician [phone] Encounter VC Date(s): 07/16/15 - 07/16/15 [facility] [address] [place], [place] [address] Discharge Diagnosis: Microscopic hematuria Discharge Diagnosis: Detrusor instability Discharge Diagnosis: Lumbago Discharge Disposition: -Home or Self Care Attending Physician: Biju Manley [...] 0 Refill(s) Start Date: 03/31/15 Status: Ordered CPAP Machine (DME) DME Item at bedtime, See Instructions, # 1 Each, 0 Refill(s), Supply Start Date: 10/06/14 Status: Ordered Dilantin 100 mg oral capsule, extended release See Instructions, TAKE TWO CAPSULES BY MOUTH TWICE A DAY, # 120 caps, 2 Refill(s ), ALEN, eRx: [facility] #[id number], TAKE TWO CAPSULES BY MOUTH TWICE A DAY Start Date: 03/26/15 Status: Ordered estradiol 2 mg oral tablet See Instructions, TAKE ONE AND ONE-HALF (1 & 1/2) TABLET BY MOUTH DAILY NEED APPOINTMENT BEFORE FURTHER REFILLS, # 45 tabs, eRx: [facility] #[id number], TAKE ONE AND ONE-HALF (1 & 1/2) TABLET BY MOUTH DAILY NEED APPOINTMENT BEFORE FURTHER REFI... Start Date: 07/01/15 Status: Ordered estradiol 2 mg oral tablet See Instructions, TAKE ONE AND ONE-HALF TABLETS BY MOUTH EVERY DAY NEEDS APPT PRIOR TO ADDITIONAL REFILLS, # 45 tabs, 0 Refill(s), Pharmacy: [facility] #[id number], TAKE ONE AND ONE-HALF TABLETS BY MOUTH EVERY DAY; NEEDS APPT PRIOR TO ADDITIONAL... Start Date: 06/08/15 Status: Ordered Flomax 0.4 mg oral capsule See Instructions, TAKE ONE CAPSULE BY MOUTH EVERY NIGHT AT BEDTIME, # 30 caps, 1 Refill(s), eRx: [facility] #[id number], TAKE ONE CAPSULE BY MOUTH EVERY NIGHT AT BEDTIME Start Date: 02/20/15 Status: Ordered omeprazole 20 mg oral delayed [...] TWICE A DAY, # 240 tabs, eRx: [facility] #[id number], TAKE TWO TABLETS BY MOUTH TWICE A DAY Start Date: 07/01/15 Status: Ordered spironolactone 25 mg oral tablet See Instructions, TAKE TWO TABLETS BY MOUTH TWICE A DAY, # 240 tabs, eRx: [facility] #[id number], TAKE TWO TABLETS BY MOUTH TWICE A DAY Start Date: 05/11/15 Status: Ordered Synthroid 100 mcg (0.1 mg) oral tablet See Instructions, TAKE ONE TABLET BY MOUTH ONCE A DAY, # 30 tabs, 5 Refill(s), ALEN, eRx: [facility] #[id number], TAKE ONE TABLET BY MOUTH ONCE A DAY Start Date: 04/01/15 Status: Ordered tamsulosin 0.4 mg oral capsule 0.4 mg 1 caps, Oral, Bedtime (once a day), # 30 caps, 0 Refill(s), Pharmacy: [facility] #[id number], 1 caps Oral Bedtime (once a day) Start Date: 05/12/15 Status: Ordered Topamax 100 mg oral tablet 1 tabs, Oral, TID, 0 Refill(s) Start Date: 03/25/14 Status: Ordered valACYclovir 1 g oral tablet See Instructions, TAKE TWO TABLETS BY MOUTH TWICE A DAY NEEDS APPT WITH PCP PRIOR TO ADDITIONAL REFILLS, # 8 tabs, 2 Refill(s), Pharmacy: [facility] # [id number], TAKE TWO TABLETS BY MOUTH TWICE A DAY; NEEDS APPT WITH PCP PRIOR TO ADDITIONAL REFILLS Start Date: 07/01/15 Status: Ordered Ventolin HFA 90 mcg/inh inhalation aerosol 2 puffs, Inhalation, q4hr, as needed for wheezing, # 18 g, 2 Refill(s), Pharmacy : [facility] #[id number], 2 puffs Inhalation q4hr,PRN:as needed for wheezing [...]
--- OUTSIDE RECORDS SUMMARY | 2017-03-08 06:48 | XMS REPORT | Referral Summary ---
Author Author [facility] Organization [facility] Address Unknown Phone Unavailable Care Team Providers Care Alcoholic Counselor Name Role Phone No PCP, States Primary Care Physician [phone] Encounter VC Date(s): 05/25/15 - 05/25/15 [facility] [address] [place], [place] [address] Discharge Diagnosis: Urinary incontinence Discharge Disposition: 01-Home or Self Care Attending Physician: Biju Manley MD Admitting Physician: Biju Manley MD Vital Signs Most recent to 1 oldest [Reference Range]: Blood Pressure 118/80 mmHg [90-140/60-90 mmHg] (05/25/15 3:30 PM) Problem List Condition Effective Dates Status [...] DAY, # 120 caps, 2 Refill(s ), LAEN, eRx: [facility] #[id number], TAKE TWO CAPSULES BY MOUTH TWICE A DAY Start Date: 03/26/15 Status: Ordered estradiol 2 mg oral tablet See Instructions, TAKE ONE AND ONE-HALF (1 & 1/2) TABLET BY MOUTH DAILY NEED APPOINTMENT BEFORE FURTHER REFILLS, # 45 tabs, eRx: [facility] #[id number], TAKE ONE AND ONE-HALF (1 & 1/2) [...] A DAY, # 240 tabs, eRx: [facility] #[id number], TAKE TWO TABLETS BY MOUTH TWICE A DAY Start Date: 07/01/15 Status: Ordered spironolactone 25 mg oral tablet See Instructions, TAKE TWO TABLETS BY MOUTH TWICE A DAY, # 240 tabs, eRx: [facility] #[id number], TAKE TWO TABLETS BY MOUTH TWICE A DAY Start Date: 05/11/15 Status: Ordered Synthroid 100 mcg (0.1 mg) oral tablet See Instructions, TAKE ONE TABLET BY MOUTH ONCE A DAY, # 30 tabs, 5 Refill(s), ALEN, eRx: [facility] #[id number], TAKE ONE TABLET BY MOUTH ONCE A DAY Start Date: 04/01/15 Status: Ordered tamsulosin 0.4 mg oral capsule 0.4 mg 1 caps, Oral, Bedtime (once a day), # 30 caps, 0 Refill(s), Pharmacy: [facility] #[id number], 1 caps Oral Bedtime (once a day) Start Date: 05/12/15 Status: Ordered Topamax 100 mg oral tablet 1 tabs, Oral, TID, 0 Refill(s) Start Date: 03/25/14 Status: Ordered valACYclovir 1 g oral tablet See Instructions, TAKE TWO TABLETS BY MOUTH TWICE A DAY NEEDS APPT WITH PCP PRIOR TO ADDITIONAL REFILLS, # 8 tabs, 2 Refill(s), Pharmacy: [facility] # [id number], TAKE TWO TABLETS BY MOUTH TWICE A DAY; NEEDS APPT WITH PCP PRIOR TO ADDITIONAL REFILLS Start Date: 07/01/15 Status: Ordered Ventolin HFA 90 mcg/inh inhalation aerosol 2 puffs, Inhalation, q4hr, as needed for wheezing, # 18 g, 2 Refill(s), Pharmacy : [facility] #[id number], 2 puffs Inhalation q4hr,PRN:as needed for wheezing Start Date: 09/17/14 Status: Ordered Results No data available for this section Immunizations Vaccine Date Refusal Reason influenza virus vaccine, inactivated 07/29/14 influenza virus vaccine, live 08/02/13 influenza virus vaccine, live 07/24/12 pneumococcal 23-polyvalent vaccine 08/24/06 Procedures Procedure Date Related Diagnosis Body Site Measurement of post-voiding residual urine 05/25/15 and/or bladder capacity by ultrasound, non-imaging hydrodistention, and SLT laser vaporation 04/30/08 S/P [...] Visit Note Author: Biju Manley MD Date: 05/26/15 Assessment/Plan I asked her to stop the Flomax. And she is also not to take Vesicare at least for now. And I asked her to use Monistat vaginal suppositories, one suppository daily at bedtime for 2 weeks. She agreed to follow-up here in a months time. Around 15 minutes spent mostly in discussion. I told her that she could require cystoscopy.
--- OUTSIDE RECORDS SUMMARY | 2017-03-08 06:48 | XMS REPORT | Continuity of Care Document ---
Author Author [facility]as [facility], [facility] Address [address] [place] [address] Phone Care Team Providers Care Rn Baby Name Role Phone Dozier Ruperto PEREZ Unavailable Payers Payer name Insurance type Covered constitution party ID Authorization(s) Unknown Problems Condition Effective Dates (start - stop) Clinical Status Retention of urine, unspecified - *Controlled Urethral stricture, unspecified - *Controlled Other postsurgical status - *Acute Tenosynovitis of foot and ankle - *Acute Retention of urine, unspecified - *Acute Urethral stricture, unspecified - *Chronic Atony of bladder - *Chronic Unspecified constipation - *Chronic Anxiety and depression - *Chronic Asthma - *Controlled Depression - *Chronic Hypertension, Benign - *Controlled Depression - *Controlled Hypertension, Benign - *Controlled Other and unspecified hyperlipidemia - *Controlled Hypothyroidism - *Controlled Influenza Vaccine - Retention of urine, unspecified - *Controlled Urethral stricture, unspecified - *Resolved Unspecified Schizophrenia, Unspecified Condition - Asymptomatic Hyperglycemia - *Acute Contusion of foot, left - *Acute Hypothyroidism - *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 - *Chronic Contusion of foot - Improved Contusion of foot - *Acute ANXIETY STATE NOS - 311 - DEPRESSIVE DISORDER NEC - BENIGN HYPERTENSION - CONVULSIONS NEC - Pain in limb - *Acute Metatarsalgia of right foot - *Acute Fractured calcaneus - *Acute Pain in thumb joint with movement - *Acute Hypothyroidism - *Chronic Family History Family Member Diagnosis Age At Onset Status Sister (Alive) Diabetes (Unknown) Social History Social History Element Description Quantity Unknown Allergies, Adverse Reactions, Alerts Substance Reaction Severity Status PENICILLINS rash Unknown 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 Unknown Medications Medication Instructions Dosage Effective Dates (start - stop) Status tamsulosin ER 0.4 mg capsule,extended release 24 hr take 1 capsule (0.4MG) by oral route every day 1/2 hour following the same meal each day 0.4 MG - Active Cipro 500 mg tablet take 1 tablet (500MG) by oral route every 12 hours 500 MG - No Longer Active Cipro 500 mg tablet take 1 tablet (500MG) by oral route every 12 hours 500 MG - No Longer Active omeprazole 20 mg tablet,delayed release take 1 by Oral route every day 0 - Active Vitamin D2 (unknown strength) take 1 by Oral route 2 times every week 1.25 mg - Active Abilify 5 mg tablet take 1 tablet (5MG) by oral route every day 5 MG - Active BENZTROPINE MESYLATE (unknown strength) 0.5 mg. Take one tablet BID - Active buspirone 30 mg tablet take 1 tablet (30MG) by oral route 2 times every day 30 MG - Active Topamax 100 mg tablet take 1 Tablet (100MG) by oral route 3 times every day 100 MG - Active Dilantin Kapseal 100 mg capsule take 2 tablets bid - Active Synthroid 100 mcg tablet take 1 tablet (100MCG) by oral route every day 100 MCG - Active estradiol 2 mg tablet Take 1.5 tablets by mouth every day. - Active Lane 5 mg-325 mg tablet Take 1 tablet by mouth twice a day as needed. Nov - Active BETHANECHOL CHLORIDE (unknown strength) take 1 tablet by oral route 4 times every day on an empty stomach, 1 hour before or 2 hours after a meal - Active citalopram 20 mg tablet take 1 tablet (20MG) by oral route every day 20 MG - Active Proventil HFA 90 mcg/actuation aerosol inhaler inhale 2 puff by inhalation route every 6 hours as needed 0 - Active spironolactone 25 mg tablet TAKE 2 TABLETS BID - Active Crestor 10 mg tablet Take 1 tablet by mouth at bedtime. - Active Immunizations Vaccine Date Status Comments Flu (split) (3 yrs or older) completed flu (split) (3 yrs or older) completed - Completed reason: public agency Results Test Name Date and Time Measure Units Reference Range Abnormal Flag Comments Unknown Vital Signs Date / Time: Height Weight Pulse Rate Blood Pressure Temperature /15:02:00 59.13 in 158.00 lbs 76 /min 118/72 mm[Hg] Procedures Procedure Date Unknown Encounters Encounter Location Date Patient Visit [facility] Urology Patient Visit [facility] CP Pod Patient Visit [facility] Patient Visit [facility] [place] Patient Visit [facility] Patient Visit [facility] Patient Visit [facility] Urology Patient Visit [facility] Patient Visit [facility] Patient Visit [facility] Patient Visit [facility] Patient Visit [facility] Patient Visit [facility] Patient Visit [facility] Urology Patient Visit [facility] Patient Visit [facility] Patient Visit [facility] [place] Patient Visit [facility] Patient Visit [facility] Patient Visit [facility] Patient Visit [facility] Patient Visit [facility] Care Patient Visit [facility] Care Patient Visit [facility] Patient Visit [facility] [place] Patient Visit [facility] Advance Directives Directive Effective Date Unknown
--- OUTSIDE RECORDS SUMMARY | 2017-03-08 06:48 | XMS REPORT | Continuity of Care Document ---
Author Author [facility] Address Unknown Phone Unavailable Care Team Providers Care Poultry Trimmer Name Role Phone Dozier Ruperto PEREZ Unavailable Payers Payer name Insurance type Covered democrat ID Authorization(s) Unknown Problems Condition Effective Dates (start - stop) Clinical Status Retention of urine, unspecified - *Acute Urethral stricture, unspecified - *Chronic Atony of bladder - *Chronic Unspecified constipation - *Chronic Anxiety and depression - *Chronic Tenosynovitis of foot and ankle - *Acute Retention of urine, unspecified - *Controlled Urethral stricture, unspecified - *Controlled Other postsurgical status - *Acute Asthma - *Controlled Depression - *Chronic Hypertension, [...] Dosage Effective Dates (start - stop) Status citalopram 20 mg tablet take 1 tablet (20MG) by oral route every day 20 MG - Active BETHANECHOL CHLORIDE (unknown strength) take 1 tablet by oral route 4 times every day on an empty stomach, 1 hour before or 2 hours after a meal - Active phenazopyridine 100 mg tablet take 1 Tablet (100MG) by oral route 3 times every day after meals 100 MG - No Longer Active budesonide 0.5 mg/2 mL suspension for nebulization inhale 2 milliliter (0.5MG ) by nebulization route 2 times every day 0.5 MG - No Longer Active Xopenex HFA 45 mcg/actuation aerosol inhaler inhale 2 puff (90MCG) by inhalation route every 6 hours 90 MCG - No Longer Active tamsulosin ER 0.4 mg capsule,extended release 24 hr take 1 capsule (0.4MG) by oral route every bedtime 0.4 MG - No Longer Active omeprazole 20 [...] tablets by mouth every day. - Active Mershon 5 mg-325 mg tablet Take 1 tablet by mouth twice a day as needed. Nov - Active tamsulosin ER 0.4 mg capsule,extended release 24 hr take 1 capsule (0.4MG) by oral route every day 1/2 hour following the same meal each day 0.4 MG - Active Proventil HFA 90 mcg/actuation [...] Height Weight Pulse Rate Blood Pressure Temperature /15:28:00 59.13 in 159.00 lbs 138/80 mm[Hg] Procedures Procedure Date Unknown Encounters Encounter Location Date Patient Visit [facility] Urology Patient Visit [facility] CP Pod Patient Visit [facility] Patient Visit [facility] [place] Patient Visit [facility] Patient Visit [facility] Patient Visit [facility] Patient Visit [facility] Patient Visit [facility] Patient Visit [facility] Patient Visit [facility] Patient Visit [facility] Patient Visit [facility] Patient Visit [facility] Patient Visit [facility] Patient Visit [facility] Patient Visit [facility] [place] Patient Visit [facility] Patient Visit [facility] Patient Visit [facility] Patient Visit [facility] Patient Visit [facility] Care Patient Visit [facility] Care Patient Visit [facility] Patient Visit [facility] [place] Patient Visit [facility] Advance Directives Directive Effective Date Unknown
--- OUTSIDE RECORDS SUMMARY | 2017-03-08 06:48 | XMS REPORT | Referral Summary ---
Author Author [facility] Organization [facility] Address Unknown Phone Unavailable Care Team Providers Care Trademark Affixer Name Role Phone No PCP, States Primary Care Physician [phone] Encounter VC Date(s): 03/31/15 - 03/31/15 [facility] [address] [place] [address] [facility] Discharge Diagnosis: Hypothyroidism Discharge Diagnosis: Pituitary [...] 120 caps, 2 Refill(s ), ALEN, eRx: [facility] #[id number], TAKE TWO CAPSULES BY MOUTH TWICE A DAY Start Date: 03/26/15 Status: Ordered estradiol 2 mg oral tablet See Instructions, TAKE ONE AND ONE-HALF (1 & 1/2) TABLET BY MOUTH DAILY NEED APPOINTMENT BEFORE FURTHER REFILLS, # 45 tabs, eRx: [facility] #[id number], TAKE ONE AND ONE-HALF (1 & 1/2) TABLET BY MOUTH DAILY NEED APPOINTMENT BEFORE FURTHER REFI... Start Date: 07/01/15 Status: Ordered estradiol 2 mg oral tablet See Instructions, TAKE ONE AND ONE-HALF TABLETS BY MOUTH EVERY DAY NEEDS APPT PRIOR TO ADDITIONAL REFILLS, # 45 tabs, 0 Refill(s), Pharmacy: [facility] #[id number], TAKE ONE AND ONE-HALF TABLETS BY MOUTH [...] TWICE A DAY, # 240 tabs, eRx: [facility] #[id number], TAKE TWO TABLETS BY MOUTH TWICE A DAY Start Date: 07/01/15 Status: Ordered spironolactone 25 mg oral tablet See Instructions, TAKE TWO TABLETS BY MOUTH TWICE A DAY, # 240 tabs, eRx: [facility] #[id number], TAKE TWO TABLETS BY MOUTH TWICE A DAY Start Date: 05/11/15 Status: Ordered Synthroid 100 mcg (0.1 mg) oral tablet See Instructions, TAKE ONE TABLET BY MOUTH ONCE A DAY, # 30 tabs, 5 Refill(s), ALEN, eRx: [facility] #[id number], TAKE ONE TABLET BY MOUTH ONCE A DAY Start Date: 04/01/15 Status: Ordered tamsulosin 0.4 mg oral capsule 0.4 mg 1 caps, Oral, Bedtime (once a day), # 30 caps, 0 Refill(s), Pharmacy: [facility] #[id number], 1 caps Oral Bedtime (once a day) Start Date: 05/12/15 Status: Ordered Topamax 100 mg oral tablet 1 tabs, Oral, TID, 0 Refill(s) Start Date: 03/25/14 Status: Ordered valACYclovir 1 g oral tablet See Instructions, TAKE TWO TABLETS BY MOUTH TWICE A DAY NEEDS APPT WITH PCP PRIOR TO ADDITIONAL REFILLS, # 8 tabs, 2 Refill(s), Pharmacy: [facility] # [id number], TAKE TWO TABLETS BY MOUTH TWICE A DAY; NEEDS APPT WITH PCP PRIOR TO ADDITIONAL REFILLS Start Date: 07/01/15 Status: Ordered Ventolin HFA 90 mcg/inh inhalation aerosol 2 puffs, Inhalation, q4hr, as needed for wheezing, # 18 g, 2 Refill(s), Pharmacy : [facility] #[id number], 2 puffs Inhalation q4hr,PRN:as needed for wheezing [...] hormone). This hormone tells the thyroid to turn down worker more hormone. SYMPTOMS Lethargy (feeling as [...] Document Revised: 12/31/2012 Document Reviewed: [facility] Patient Information 2014 [employer]. No follow up information was provided. 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 continue same synthroid dose. prolactin is normal. f/u in 1 year. encouraged weight loss and exercise. 2.Hypothyroidism
--- OUTSIDE RECORDS SUMMARY | 2017-03-08 06:48 | XMS REPORT | Referral Summary ---
Author Author [facility] Organization [facility] Address Unknown Phone Unavailable Care Team Providers Care Visual Specialist Name Role Phone No PCP, States Primary Care Physician [phone] Encounter VC Date(s): 03/31/15 - 03/31/15 [facility] [address] [place] [address] [facility] Discharge Diagnosis: Hypothyroidism Discharge Diagnosis: Pituitary [...] ALEN, eRx: [facility] #[id number], TAKE TWO CAPSULES BY MOUTH TWICE A DAY Start Date: 03/26/15 Status: Ordered estradiol 2 mg oral tablet See Instructions, TAKE ONE AND ONE-HALF (1 & 1/2) TABLET BY MOUTH DAILY NEED APPOINTMENT BEFORE FURTHER REFILLS, # 45 tabs, eRx: [facility] #[id number], TAKE ONE AND ONE-HALF (1 & 1/2) TABLET BY MOUTH DAILY NEED APPOINTMENT BEFORE FURTHER REFI... Start Date: 07/01/15 Status: Ordered estradiol 2 mg oral tablet See Instructions, TAKE ONE AND ONE-HALF TABLETS BY MOUTH EVERY DAY NEEDS APPT PRIOR TO ADDITIONAL REFILLS, # 45 tabs, 0 Refill(s), Pharmacy: [facility] #[id number], TAKE ONE AND ONE-HALF TABLETS BY MOUTH [...] TWICE A DAY, # 240 tabs, eRx: [facility] #[id number], TAKE TWO TABLETS BY MOUTH TWICE A DAY Start Date: 07/01/15 Status: Ordered spironolactone 25 mg oral tablet See Instructions, TAKE TWO TABLETS BY MOUTH TWICE A DAY, # 240 tabs, eRx: [facility] #[id number], TAKE TWO TABLETS BY MOUTH TWICE A DAY Start Date: 05/11/15 Status: Ordered Synthroid 100 mcg (0.1 mg) oral tablet See Instructions, TAKE ONE TABLET BY MOUTH ONCE A DAY, # 30 tabs, 5 Refill(s), ALEN, eRx: [facility] #[id number], TAKE ONE TABLET BY MOUTH ONCE A DAY Start Date: 04/01/15 Status: Ordered tamsulosin 0.4 mg oral capsule 0.4 mg 1 caps, Oral, Bedtime (once a day), # 30 caps, 0 Refill(s), Pharmacy: [facility] #[id number], 1 caps Oral Bedtime (once a day) Start Date: 05/12/15 Status: Ordered Topamax 100 mg oral tablet 1 tabs, Oral, TID, 0 Refill(s) Start Date: 03/25/14 Status: Ordered valACYclovir 1 g oral tablet See Instructions, TAKE TWO TABLETS BY MOUTH TWICE A DAY NEEDS APPT WITH PCP PRIOR TO ADDITIONAL REFILLS, # 8 tabs, 2 Refill(s), Pharmacy: [facility] # [id number], TAKE TWO TABLETS BY MOUTH TWICE A DAY; NEEDS APPT WITH PCP PRIOR TO ADDITIONAL REFILLS Start Date: 07/01/15 Status: Ordered Ventolin HFA 90 mcg/inh inhalation aerosol 2 puffs, Inhalation, q4hr, as needed for wheezing, # 18 g, 2 Refill(s), Pharmacy : [facility] #[id number], 2 puffs Inhalation q4hr,PRN:as needed for wheezing [...] hormone). This hormone tells the thyroid to glove turner and former more hormone. SYMPTOMS Lethargy (feeling as though [...] Released: 10/09/2006 Document Revised: 12/31/2012 Document Reviewed: [facility] Patient Information 2014 [employer]. No follow up information was provided. 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 continue same synthroid dose. prolactin is normal. f/u in 1 year. encouraged weight loss and exercise. 2.Hypothyroidism
--- OUTSIDE RECORDS SUMMARY | 2017-03-08 06:48 | XMS REPORT | Referral Summary ---
Author Author [facility] Organization [facility] Address Unknown Phone Unavailable Care Team Providers Care Food Adviser Name Role Phone No PCP, States Primary Care Physician [phone] Encounter VC Date(s): 03/31/15 - 03/31/15 [facility] [address] [place] [address] [facility] Discharge Diagnosis: Hypothyroidism Discharge Diagnosis: [...] caps, 2 Refill(s ), ALEN, eRx: [facility] #[id number], TAKE TWO CAPSULES BY MOUTH TWICE A DAY Start Date: 03/26/15 Status: Ordered estradiol 2 mg oral tablet See Instructions, TAKE ONE AND ONE-HALF (1 & 1/2) TABLET BY MOUTH DAILY NEED APPOINTMENT BEFORE FURTHER REFILLS, # 45 tabs, eRx: [facility] #[id number], TAKE ONE AND ONE-HALF (1 & 1/2) TABLET BY MOUTH DAILY NEED APPOINTMENT BEFORE FURTHER REFI... Start Date: 07/01/15 Status: Ordered estradiol 2 mg oral tablet See Instructions, TAKE ONE AND ONE-HALF TABLETS BY MOUTH EVERY DAY NEEDS APPT PRIOR TO ADDITIONAL REFILLS, # 45 tabs, 0 Refill(s), Pharmacy: [facility] #[id number], TAKE ONE AND ONE-HALF TABLETS BY MOUTH [...] A DAY, # 240 tabs, eRx: [facility] #[id number], TAKE TWO TABLETS BY MOUTH TWICE A DAY Start Date: 07/01/15 Status: Ordered spironolactone 25 mg oral tablet See Instructions, TAKE TWO TABLETS BY MOUTH TWICE A DAY, # 240 tabs, eRx: [facility] #[id number], TAKE TWO TABLETS BY MOUTH TWICE A DAY Start Date: 05/11/15 Status: Ordered Synthroid 100 mcg (0.1 mg) oral tablet See Instructions, TAKE ONE TABLET BY MOUTH ONCE A DAY, # 30 tabs, 5 Refill(s), ALEN, eRx: [facility] #[id number], TAKE ONE TABLET BY MOUTH ONCE A DAY Start Date: 04/01/15 Status: Ordered tamsulosin 0.4 mg oral capsule 0.4 mg 1 caps, Oral, Bedtime (once a day), # 30 caps, 0 Refill(s), Pharmacy: [facility] #[id number], 1 caps Oral Bedtime (once a day) Start Date: 05/12/15 Status: Ordered Topamax 100 mg oral tablet 1 tabs, Oral, TID, 0 Refill(s) Start Date: 03/25/14 Status: Ordered valACYclovir 1 g oral tablet See Instructions, TAKE TWO TABLETS BY MOUTH TWICE A DAY NEEDS APPT WITH PCP PRIOR TO ADDITIONAL REFILLS, # 8 tabs, 2 Refill(s), Pharmacy: [facility] # [id number], TAKE TWO TABLETS BY MOUTH TWICE A DAY; NEEDS APPT WITH PCP PRIOR TO ADDITIONAL REFILLS Start Date: 07/01/15 Status: Ordered Ventolin HFA 90 mcg/inh inhalation aerosol 2 puffs, Inhalation, q4hr, as needed for wheezing, # 18 g, 2 Refill(s), Pharmacy : [facility] #[id number], 2 puffs Inhalation q4hr,PRN:as needed for wheezing [...] hormone). This hormone tells the thyroid to clipper and turner more hormone. SYMPTOMS Lethargy (feeling as [...] Released: 10/09/2006 Document Revised: 12/31/2012 Document Reviewed: [facility] Patient Information 2014 [employer]. No follow up information was provided. 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 continue same synthroid dose. prolactin is normal. f/u in 1 year. encouraged weight loss and exercise. 2.Hypothyroidism
--- OUTSIDE RECORDS SUMMARY | 2017-03-08 06:48 | XMS REPORT | Referral Summary ---
Author Author [facility] Organization [facility] Address Unknown Phone Unavailable Care Team Providers Care Assistant Manager Name Role Phone No PCP, States Primary Care Physician [phone] Encounter VC Date(s): 03/31/15 - 03/31/15 [facility] [address] [place] [address] [facility] Discharge Diagnosis: Hypothyroidism Discharge [...] 120 caps, 2 Refill(s ), ALEN, eRx: [facility] #[id number], TAKE TWO CAPSULES BY MOUTH TWICE A DAY Start Date: 03/26/15 Status: Ordered estradiol 2 mg oral tablet See Instructions, TAKE ONE AND ONE-HALF (1 & 1/2) TABLET BY MOUTH DAILY NEED APPOINTMENT BEFORE FURTHER REFILLS, # 45 tabs, eRx: [facility] #[id number], TAKE ONE AND ONE-HALF (1 & 1/2) TABLET BY MOUTH DAILY NEED APPOINTMENT BEFORE FURTHER REFI... Start Date: 07/01/15 Status: Ordered estradiol 2 mg oral tablet See Instructions, TAKE ONE AND ONE-HALF TABLETS BY MOUTH EVERY DAY NEEDS APPT PRIOR TO ADDITIONAL REFILLS, # 45 tabs, 0 Refill(s), Pharmacy: [facility] #[id number], TAKE ONE AND ONE-HALF TABLETS BY MOUTH [...] TWICE A DAY, # 240 tabs, eRx: [facility] #[id number], TAKE TWO TABLETS BY MOUTH TWICE A DAY Start Date: 07/01/15 Status: Ordered spironolactone 25 mg oral tablet See Instructions, TAKE TWO TABLETS BY MOUTH TWICE A DAY, # 240 tabs, eRx: [facility] #[id number], TAKE TWO TABLETS BY MOUTH TWICE A DAY Start Date: 05/11/15 Status: Ordered Synthroid 100 mcg (0.1 mg) oral tablet See Instructions, TAKE ONE TABLET BY MOUTH ONCE A DAY, # 30 tabs, 5 Refill(s), ALEN, eRx: [facility] #[id number], TAKE ONE TABLET BY MOUTH ONCE A DAY Start Date: 04/01/15 Status: Ordered tamsulosin 0.4 mg oral capsule 0.4 mg 1 caps, Oral, Bedtime (once a day), # 30 caps, 0 Refill(s), Pharmacy: [facility] #[id number], 1 caps Oral Bedtime (once a day) Start Date: 05/12/15 Status: Ordered Topamax 100 mg oral tablet 1 tabs, Oral, TID, 0 Refill(s) Start Date: 03/25/14 Status: Ordered valACYclovir 1 g oral tablet See Instructions, TAKE TWO TABLETS BY MOUTH TWICE A DAY NEEDS APPT WITH PCP PRIOR TO ADDITIONAL REFILLS, # 8 tabs, 2 Refill(s), Pharmacy: [facility] # [id number], TAKE TWO TABLETS BY MOUTH TWICE A DAY; NEEDS APPT WITH PCP PRIOR TO ADDITIONAL REFILLS Start Date: 07/01/15 Status: Ordered Ventolin HFA 90 mcg/inh inhalation aerosol 2 puffs, Inhalation, q4hr, as needed for wheezing, # 18 g, 2 Refill(s), Pharmacy : [facility] #[id number], 2 puffs Inhalation q4hr,PRN:as needed for wheezing [...] This hormone tells the thyroid to returned materials inspector more hormone. SYMPTOMS Lethargy (feeling as [...] Released: 10/09/2006 Document Revised: 12/31/2012 Document Reviewed: [facility] Patient Information 2014 [employer]. No follow up information was provided. 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 continue same synthroid dose. prolactin is normal. f/u in 1 year. encouraged weight loss and exercise. 2.Hypothyroidism
--- OUTSIDE RECORDS SUMMARY | 2017-03-08 06:49 | XMS REPORT | Referral Summary ---
Author Author [facility] Organization [facility] Address Unknown Phone Unavailable Care Team Providers Care Supervisor Bonding Name Role Phone Jesus oDzier Primary Care Physician [phone] Encounter VC Date(s): 07/16/15 - 07/16/15 [facility] [address] [place], [place] [address] Discharge Diagnosis: Microscopic hematuria Discharge Diagnosis: Detrusor [...] ALEN, eRx: [facility] #[id number], TAKE TWO CAPSULES BY MOUTH TWICE A DAY Start Date: 03/26/15 Status: Ordered estradiol 2 mg oral tablet See Instructions, TAKE ONE AND ONE-HALF (1 & 1/2) TABLET BY MOUTH DAILY NEED APPOINTMENT BEFORE FURTHER REFILLS, # 45 tabs, eRx: [facility] #[id number], TAKE ONE AND ONE-HALF (1 & 1/2) TABLET BY MOUTH DAILY NEED APPOINTMENT BEFORE FURTHER REFI... Start Date: 07/01/15 Status: Ordered estradiol 2 mg oral tablet See Instructions, TAKE ONE AND ONE-HALF TABLETS BY MOUTH EVERY DAY NEEDS APPT PRIOR TO ADDITIONAL REFILLS, # 45 tabs, 0 Refill(s), Pharmacy: [facility] #[id number], TAKE ONE AND ONE-HALF TABLETS BY MOUTH EVERY DAY; NEEDS APPT PRIOR TO ADDITIONAL... Start Date: 06/08/15 Status: Ordered Flomax 0.4 mg oral capsule See Instructions, TAKE ONE CAPSULE BY MOUTH EVERY NIGHT AT BEDTIME, # 30 caps, 1 Refill(s), eRx: [facility] #[id number], TAKE ONE CAPSULE BY MOUTH EVERY NIGHT [...] tabs, eRx: [facility] #[id number], TAKE TWO TABLETS BY MOUTH TWICE A DAY Start Date: 07/01/15 Status: Ordered spironolactone 25 mg oral tablet See Instructions, TAKE TWO TABLETS BY MOUTH TWICE A DAY, # 240 tabs, eRx: [facility] #[id number], TAKE TWO TABLETS BY MOUTH TWICE A DAY Start Date: 05/11/15 Status: Ordered Synthroid 100 mcg (0.1 mg) oral tablet See Instructions, TAKE ONE TABLET BY MOUTH ONCE A DAY, # 30 tabs, 5 Refill(s), ALEN, eRx: [facility] #[id number], TAKE ONE TABLET BY MOUTH ONCE A DAY Start Date: 04/01/15 Status: Ordered tamsulosin 0.4 mg oral capsule 0.4 mg 1 caps, Oral, Bedtime (once a day), # 30 caps, 0 Refill(s), Pharmacy: [facility] #[id number], 1 caps Oral Bedtime (once a day) Start Date: 05/12/15 Status: Ordered Topamax 100 mg oral tablet 1 tabs, Oral, TID, 0 Refill(s) Start Date: 03/25/14 Status: Ordered valACYclovir 1 g oral tablet See Instructions, TAKE TWO TABLETS BY MOUTH TWICE A DAY NEEDS APPT WITH PCP PRIOR TO ADDITIONAL REFILLS, # 8 tabs, 2 Refill(s), Pharmacy: [facility] # [id number], TAKE TWO TABLETS BY MOUTH TWICE A DAY; NEEDS APPT WITH PCP PRIOR TO ADDITIONAL REFILLS Start Date: 07/01/15 Status: Ordered Ventolin HFA 90 mcg/inh inhalation aerosol 2 puffs, Inhalation, q4hr, as needed for wheezing, # 18 g, 2 Refill(s), Pharmacy : [facility] #[id number], 2 puffs Inhalation q4hr,PRN:as needed for wheezing [...]
--- OUTSIDE RECORDS SUMMARY | 2017-03-08 06:49 | XMS REPORT | Referral Summary ---
Author Author [facility] Organization [facility] Address Unknown Phone Unavailable Care Team Providers Care Power Lineworker Name Role Phone No PCP, States Primary Care Physician [phone] Encounter VC Date(s): 05/15/15 - 05/15/15 [facility] [address] [place], [place] [address] Discharge Diagnosis: Urinary urgency Discharge Disposition: 01-Home or Self Care Attending Physician: Biju Manley MD Admitting Physician: Biju Manley MD Referring Physician: Biju Manley MD Vital Signs Most recent to 1 oldest [Reference Range]: Blood Pressure 120/80 mmHg [90-140/60-90 mmHg] (05/15/15 1:49 PM) Problem List Condition Effective Dates Status [...] 120 caps, 2 Refill(s ), ALEN, eRx: [facility] #[id number], TAKE TWO CAPSULES BY MOUTH TWICE A DAY Start Date: 03/26/15 Status: Ordered estradiol 2 mg oral tablet See Instructions, TAKE ONE AND ONE-HALF (1 & 1/2) TABLET BY MOUTH DAILY NEED APPOINTMENT BEFORE FURTHER REFILLS, # 45 tabs, eRx: [facility] #[id number], TAKE ONE AND ONE-HALF (1 & 1/2) [...] TWICE A DAY, # 240 tabs, eRx: [facility] #[id number], TAKE TWO TABLETS BY MOUTH TWICE A DAY Start Date: 07/01/15 Status: Ordered spironolactone 25 mg oral tablet See Instructions, TAKE TWO TABLETS BY MOUTH TWICE A DAY, # 240 tabs, eRx: [facility] #[id number], TAKE TWO TABLETS BY MOUTH TWICE A DAY Start Date: 05/11/15 Status: Ordered Synthroid 100 mcg (0.1 mg) oral tablet See Instructions, TAKE ONE TABLET BY MOUTH ONCE A DAY, # 30 tabs, 5 Refill(s), ALEN, eRx: [facility] #[id number], TAKE ONE TABLET BY MOUTH ONCE A DAY Start Date: 04/01/15 Status: Ordered tamsulosin 0.4 mg oral capsule 0.4 mg 1 caps, Oral, Bedtime (once a day), # 30 caps, 0 Refill(s), Pharmacy: [facility] #[id number], 1 caps Oral Bedtime (once a day) Start Date: 05/12/15 Status: Ordered Topamax 100 mg oral tablet 1 tabs, Oral, TID, 0 Refill(s) Start Date: 03/25/14 Status: Ordered valACYclovir 1 g oral tablet See Instructions, TAKE TWO TABLETS BY MOUTH TWICE A DAY NEEDS APPT WITH PCP PRIOR TO ADDITIONAL REFILLS, # 8 tabs, 2 Refill(s), Pharmacy: [facility] # [id number], TAKE TWO TABLETS BY MOUTH TWICE A DAY; NEEDS APPT WITH PCP PRIOR TO ADDITIONAL REFILLS Start Date: 07/01/15 Status: Ordered Ventolin HFA 90 mcg/inh inhalation aerosol 2 puffs, Inhalation, q4hr, as needed for wheezing, # 18 g, 2 Refill(s), Pharmacy : [facility] #[id number], 2 puffs Inhalation q4hr,PRN:as needed for wheezing Start Date: 09/17/14 Status: Ordered Results No data available for this section Immunizations Vaccine Date Refusal Reason influenza virus vaccine, inactivated 07/29/14 influenza virus vaccine, live 08/02/13 influenza virus vaccine, live 07/24/12 pneumococcal 23-polyvalent vaccine 08/24/06 Procedures Procedure Date Related Diagnosis Body Site Measurement of post-voiding residual urine 05/15/15 and/or bladder capacity by ultrasound, non-imaging hydrodistention, [...] Extracted from: Title: Ambulatory Patient Education Author: Biju Manley MD Date: 05/16/15 Urology Urinary Frequency The number of times a normal person urinates depends upon how much liquid they take in and how much liquid they are losing. If the temperature is hot and there is high humidity then the person will sweat more and usually breathe a little more frequently. These factors decrease the amount of frequency of urination that would be considered normal. The amount you drink is easily determined, but the amount of fluid lost is sometimes more difficult to calculate. Fluid is lost in two ways: Sensible fluid loss is usually measured by the amount of urine that you get rid of. Losses of fluid can also occur with diarrhea. Insensible fluid loss is more difficult to measure. It is caused by evaporation. Insensible loss of fluid occurs through breathing and sweating. It usually ranges from a little less than a quart to a little more than a quart of fluid a day. In normal temperatures and activity levels the average person may urinate 4 to 7 times in a 24-hour period. Needing to urinate more often than that could indicate a problem. If one urinates 4 to 7 times in 24 hours and has large volumes each time, that could indicate a different problem from one who urinates 4 to 7 times a day and has small volumes. The time of urinating is also an important. Most urinating should be done during the waking hours. Getting up at night to urinate frequently can indicate some problems. CAUSES The bladder is the organ in your lower abdomen that holds urine. Like a balloon , it swells some as it fills up. Your nerves sense this and tell you it is time to head for the bathroom. There are a number of reasons that you might feel the need to urinate more often than usual. They include: Urinary tract infection. This is usually associated with other signs such as burning when you urinate. In men, problems with the prostate (a walnut-size gland that is located near the tube that carries urine out of your body). There are two reasons why the prostate can cause an increased frequency of urination: An enlarged prostate that does not let the bladder empty well. If the bladder only half empties when you urinate then it only has half the capacity to fill before you have to urinate again. The nerves in the bladder become more hypersensitive with an increased size of the prostate even if the bladder empties completely. . Obesity. Excess weight is more likely to cause a problem for women more than for men. Bladder stones or other bladder problems. Caffeine. Alcohol. Medications. For example, drugs that help the body get rid of extra fluid ( diuretics) increase urine production. Some other medicines must be taken with lots of fluids. Muscle or nerve weakness. This might be the result of a spinal cord injury , a stroke, multiple sclerosis or Parkinson's disease. Long-standing diabetes can decrease the sensation of the bladder. This loss of sensation makes it harder to sense the bladder needs to be emptied. Over a period of years the bladder is stretched out by constant overfilling. This weakens the bladder muscles so that the bladder does not empty well and has less capacity to fill with new urine. Interstitial cystitis (also called painful bladder syndrome). This condition develops because the tissues that line the insider of the bladder are inflamed (inflammation is the body's way of reacting to injury or infection). It causes pain and frequent urination. It occurs in women more often than in men. DIAGNOSIS To decide what might be causing your urinary frequency, your healthcare provider will probably: Ask about symptoms you have noticed. Ask about your overall health. This will include questions about any medications you are taking. Do a physical examination. Order some tests. These might include: A blood test to check for diabetes or other health issues that could be contributing to the problem. Urine testing. This could measure the flow of urine and the pressure on the bladder. A test of your neurological system (the brain, spinal cord and nerves). This is the system that senses the need to urinate. A bladder test to check whether it is emptying completely when you urinate. Cytoscopy. This test uses a thin tube with a tiny camera on it. It offers a look inside your urethra and bladder to see if there are problems. Imaging tests. You might be given a contrast dye and then asked to urinate. X-rays are taken to see how your bladder is working. TREATMENT It is important for you to be evaluated to determine if the amount or frequency that you have is unusual or abnormal. If it is found to be abnormal the cause should be determined and this can usually be found out easily. Depending upon the cause treatment could include medication, stimulation of the nerves, or surgery. There are not too many things that you can do as an individual to change your urinary frequency. It is important that you balance the amount of fluid intake needed to compensate for your activity and the temperature. Medical problems will be diagnosed and taken care of by your physician. There is no particular bladder training such as Kegel's exercises that you can do to help urinary frequency. This is an exercise this is usually done for people who have leaking of urine when they laugh cough or sneeze. HOME CARE INSTRUCTIONS Take any medications your healthcare provider prescribed or suggested. Follow the directions carefully. Practice any lifestyle changes that are recommended. These might include: Drinking less fluid or drinking at different times of the day. If you need to urinate often during the night, for example, you may need to stop drinking fluids early in the evening. Cutting down on caffeine or alcohol. They both can make you need to urinate more often than normal. Caffeine is found in coffee, tea and sodas. Losing weight, if that is recommended. Keep a journal or a log. You might be asked to record how much you drink and when and when you feel the need to urinate. This will also help evaluate how well the treatment provided by your physician is working. SEEK MEDICAL CARE IF: Your need to urinate often gets worse. You feel increased pain or irritation when you urinate. You notice blood in your urine. You have questions about any medications that your healthcare provider recommended. You notice blood, pus or swelling at the site of any test or treatment procedure. You develop a fever of more than 100.5 F (38.1 C). SEEK IMMEDIATE MEDICAL CARE IF: You develop a fever of more than 102.0 F (38.9 C). Document Released: 08/05/2010 Document Revised: 12/31/2012 Document Reviewed: [employer] Patient Information 2015 [employer]. This information is not intended to replace advice given to you by your health care provider. Make sure you discuss any questions you have with your health care provider. No follow up information was provided. Extracted from: Title: Office Visit Note Author: Biju Manley MD Date: 05/16/15 Assessment/Plan 1.Urinary urgency Probably a form of bladder instability but she could also be overconsuming fluids. We covered how much fluid she needs. And I went over the importance of taking more time on the toilet to empty her bladder and to avoid pushing and straining. Some of the weakness to her stream could be due to the psychotropic medication. I gave her samples of Vesicare 5 mg by mouth daily. She is to take this only if the non-medicine measures are not effective. Risks complications and side effects of Vesicare gone over with her. Around 25 minutes spent in discussion. Follow-up emphasized. She agreed to return to my office in 3-4 weeks time and sooner if needed.
--- OUTSIDE RECORDS SUMMARY | 2017-03-08 06:49 | XMS REPORT | Clinical Summary ---
Author Author Admin, E Organization [facility] Address Unknown Phone Unavailable Allergies, Adverse Reactions, [...] Provider Patient Instruction MYRBETRIQ 50 MG ORAL [id number] 1 tab by mouth daily MIRABEGRON 24982964538 Active Ada Sanon MD Active POTASSIUM CHLORIDE CR 10 MEQ CPCR 3 capsule by mouth twice daily POTASSIUM CHLORIDE 58525852520 Active Ada Sanon MD Active ESTRADIOL 2 MG ORAL TABS 1 and 1/2 tabs by mouth daily ESTRADIOL 61621336057 Active Ada Sanon MD Active CITALOPRAM HYDROBROMIDE 40 MG ORAL TABS 1 tab by mouth daily CITALOPRAM HYDROBROMIDE 44490111895 Active Ada Sanon MD Active BENZTROPINE MESYLATE 0.5 MG ORAL TABS 2 tabs by mouth daily BENZTROPINE MESYLATE 59099613904 Active Ada Sanon MD Active ABILIFY 5 MG ORAL TABS 1 tab by mouth daily ARIPIPRAZOLE 95939026185 Active Ada Sanon MD Active BUSPIRONE HCL 30 MG ORAL TABS 2 tabs by mouth daily BUSPIRONE HCL 52111991864 Active Ada Sanon MD Active TOPIRAMATE ER 100 MG ORAL CS24 1 tab by mouth three times daily TOPIRAMATE 61345172902 Active Ada Sanon MD Active SPIRONOLACTONE 25 MG TAB 1 tablet by mouth twice daily SPIRONOLACTONE 40819565386 Active Ada Sanon MD Active BETAXOLOL HCL 10 MG ORAL TABS 1/2 tab by mouth daily BETAXOLOL HCL 27731152562 Active Ada Sanon MD Active PRAVASTATIN SODIUM 40 MG TABS 1 po q HS PRAVASTATIN SODIUM 50610193667 Active Ada Sanon MD Active DILANTIN 100 MG CAP 1 cap by mouth twice daily PHENYTOIN SODIUM EXTENDED 29422028496 Active Ada Sanon MD Active PANTOPRAZOLE SODIUM 40 MG TBEC 1 pill by mouth daily PANTOPRAZOLE SODIUM 06275502428 Active Ada Sanon MD Active SYNTHROID 0.088 MG TAB 1 tablet by mouth daily LEVOTHYROXINE SODIUM 17906480133 Active Ada Sanon MD Active Vital Signs [...] negative Encounters Code Encounter Date Provider Facility CPT-62996 Level 3 Est. 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
--- OUTSIDE RECORDS SUMMARY | 2017-03-08 06:49 | XMS REPORT | Clinical Summary ---
Author Author Admin, E Organization [facility] [employer] [place] Address Unknown Phone Unavailable Allergies, Adverse Reactions, [...] Provider Patient Instruction MYRBETRIQ 50 MG ORAL [id number] 1 tab by mouth daily MIRABEGRON 60263312543 Active Ada Sanon MD Active POTASSIUM CHLORIDE CR 10 MEQ CPCR 3 capsule by mouth twice daily POTASSIUM CHLORIDE 12973289213 Active Ada Sanon MD Active ESTRADIOL 2 MG ORAL TABS 1 and 1/2 tabs by mouth daily ESTRADIOL 20804137151 Active Ada Sanon MD Active CITALOPRAM HYDROBROMIDE 40 MG ORAL TABS 1 tab by mouth daily CITALOPRAM HYDROBROMIDE 29075151171 Active Ada Sanon MD Active BENZTROPINE MESYLATE 0.5 MG ORAL TABS 2 tabs by mouth daily BENZTROPINE MESYLATE 11308863883 Active Ada Sanon MD Active ABILIFY 5 MG ORAL TABS 1 tab by mouth daily ARIPIPRAZOLE 07503841433 Active Ada Sanon MD Active BUSPIRONE HCL 30 MG ORAL TABS 2 tabs by mouth daily BUSPIRONE HCL 87721152422 Active Ada Sanon MD Active TOPIRAMATE ER 100 MG ORAL CS24 1 tab by mouth three times daily TOPIRAMATE 63226030656 Active Ada Sanon MD Active SPIRONOLACTONE 25 MG TAB 1 tablet by mouth twice daily SPIRONOLACTONE 97569838315 Active Ada Sanon MD Active BETAXOLOL HCL 10 MG ORAL TABS 1/2 tab by mouth daily BETAXOLOL HCL 92779038318 Active Ada Sanon MD Active PRAVASTATIN SODIUM 40 MG TABS 1 po q HS PRAVASTATIN SODIUM 12425253725 Active Ada Sanon MD Active DILANTIN 100 MG CAP 1 cap by mouth twice daily PHENYTOIN SODIUM EXTENDED 06318774284 Active Ada Sanon MD Active PANTOPRAZOLE SODIUM 40 MG TBEC 1 pill by mouth daily PANTOPRAZOLE SODIUM 40822709796 Active Ada Sanon MD Active SYNTHROID 0.088 MG TAB 1 tablet by mouth daily LEVOTHYROXINE SODIUM 92859197796 Active Ada Sanon MD Active Vital Signs [...] negative Encounters Code Encounter Date Provider Facility CPT-73956 Level 3 Est. 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
--- OUTSIDE RECORDS SUMMARY | 2017-03-08 06:49 | XMS REPORT | Referral Summary ---
Author Author [facility] Organization [facility] Address Unknown Phone Unavailable Care Team Providers Care Primary Health Care Nurse Name Role Phone No PCP, States Primary Care Physician [phone] Encounter VC Date(s): 03/31/15 - 03/31/15 [facility] [address] [place] [address] [facility] Discharge Diagnosis: Hypothyroidism Discharge Diagnosis: Pituitary tumor [...] 120 caps, 2 Refill(s ), ALEN, eRx: [facility] #[id number], TAKE TWO CAPSULES BY MOUTH TWICE A DAY Start Date: 03/26/15 Status: Ordered estradiol 2 mg oral tablet See Instructions, TAKE ONE AND ONE-HALF (1 & 1/2) TABLET BY MOUTH DAILY NEED APPOINTMENT BEFORE FURTHER REFILLS, # 45 tabs, eRx: [facility] #[id number], TAKE ONE AND ONE-HALF (1 & 1/2) TABLET BY MOUTH DAILY NEED APPOINTMENT BEFORE FURTHER REFI... Start Date: 07/01/15 Status: Ordered estradiol 2 mg oral tablet See Instructions, TAKE ONE AND ONE-HALF TABLETS BY MOUTH EVERY DAY NEEDS APPT PRIOR TO ADDITIONAL REFILLS, # 45 tabs, 0 Refill(s), Pharmacy: [facility] #[id number], TAKE ONE AND ONE-HALF TABLETS BY MOUTH [...] TWICE A DAY, # 240 tabs, eRx: [facility] #[id number], TAKE TWO TABLETS BY MOUTH TWICE A DAY Start Date: 07/01/15 Status: Ordered spironolactone 25 mg oral tablet See Instructions, TAKE TWO TABLETS BY MOUTH TWICE A DAY, # 240 tabs, eRx: [facility] #[id number], TAKE TWO TABLETS BY MOUTH TWICE A DAY Start Date: 05/11/15 Status: Ordered Synthroid 100 mcg (0.1 mg) oral tablet See Instructions, TAKE ONE TABLET BY MOUTH ONCE A DAY, # 30 tabs, 5 Refill(s), ALEN, eRx: [facility] #[id number], TAKE ONE TABLET BY MOUTH ONCE A DAY Start Date: 04/01/15 Status: Ordered tamsulosin 0.4 mg oral capsule 0.4 mg 1 caps, Oral, Bedtime (once a day), # 30 caps, 0 Refill(s), Pharmacy: [facility] #[id number], 1 caps Oral Bedtime (once a day) Start Date: 05/12/15 Status: Ordered Topamax 100 mg oral tablet 1 tabs, Oral, TID, 0 Refill(s) Start Date: 03/25/14 Status: Ordered valACYclovir 1 g oral tablet See Instructions, TAKE TWO TABLETS BY MOUTH TWICE A DAY NEEDS APPT WITH PCP PRIOR TO ADDITIONAL REFILLS, # 8 tabs, 2 Refill(s), Pharmacy: [facility] # [id number], TAKE TWO TABLETS BY MOUTH TWICE A DAY; NEEDS APPT WITH PCP PRIOR TO ADDITIONAL REFILLS Start Date: 07/01/15 Status: Ordered Ventolin HFA 90 mcg/inh inhalation aerosol 2 puffs, Inhalation, q4hr, as needed for wheezing, # 18 g, 2 Refill(s), Pharmacy : [facility] #[id number], 2 puffs Inhalation q4hr,PRN:as needed for wheezing [...] Released: 10/09/2006 Document Revised: 12/31/2012 Document Reviewed: [facility] Patient Information 2014 [employer]. No follow up information was provided. 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 continue same synthroid dose. prolactin is normal. f/u in 1 year. encouraged weight loss and exercise. 2.Hypothyroidism
--- OUTSIDE RECORDS SUMMARY | 2017-03-08 06:49 | XMS REPORT | Clinical Summary ---
Author Author Admin, E Organization [facility] Address Unknown Phone Unavailable Allergies, Adverse Reactions, [...] Generic Name NDC Status Provider Patient Instruction POTASSIUM CHLORIDE CR 10 MEQ CPCR 3 capsule by mouth twice daily POTASSIUM CHLORIDE 40241294138 Active Ada Sanon MD Active ESTRADIOL 2 MG ORAL TABS 1 and 1/2 tabs by mouth daily ESTRADIOL 21266274499 Active Ada Sanon MD Active CITALOPRAM HYDROBROMIDE 40 MG ORAL TABS 1 tab by mouth daily CITALOPRAM HYDROBROMIDE 14969247971 Active Ada Sanon MD Active BENZTROPINE MESYLATE 0.5 MG ORAL TABS 2 tabs by mouth daily BENZTROPINE MESYLATE 03494284341 Active Ada Sanon MD Active ABILIFY 5 MG ORAL TABS 1 tab by mouth daily ARIPIPRAZOLE 05164249249 Active Ada Sanon MD Active BUSPIRONE HCL 30 MG ORAL TABS 2 tabs by mouth daily BUSPIRONE HCL 60609643851 Active Ada Sanon MD Active TOPIRAMATE ER 100 MG ORAL CS24 1 tab by mouth three times daily TOPIRAMATE 04203768005 Active Ada Sanon MD Active SPIRONOLACTONE 25 MG TAB 1 tablet by mouth twice daily SPIRONOLACTONE 88520801190 Active Ada Sanon MD Active BETAXOLOL HCL 10 MG ORAL TABS 1/2 tab by mouth daily BETAXOLOL HCL 66469458631 Active Ada Sanon MD Active PRAVASTATIN SODIUM 40 MG TABS 1 po q HS PRAVASTATIN SODIUM 58306033698 Active Ada Sanon MD Active DILANTIN 100 MG CAP 1 cap by mouth twice daily PHENYTOIN SODIUM EXTENDED 78999734410 Active Ada Sanon MD Active PANTOPRAZOLE SODIUM 40 MG TBEC 1 pill by mouth daily PANTOPRAZOLE SODIUM 14737549446 Active Ada Sanon MD Active MYRBETRIQ 25 MG ORAL [id number] 1 tab by mouth daily MIRABEGRON 78593097857 Active Ada Sanon MD Active SYNTHROID 0.088 MG TAB 1 tablet by mouth daily LEVOTHYROXINE SODIUM 50008811067 Active Ada Sanon MD Active Vital Signs Date Name Value Unit Range Description blood pressure, diastolic - 8462-4 80 mm[Hg] [...] negative Encounters Code Encounter Date Provider Facility CPT-02729 Level 3 New Patient 15:57:26 CDT Ada Sanon MD [facility] Procedures Code Procedure Name Date Entry Date Standard Description CPT-41059 Urine Dip (Floor Use Only) 15:57:26 CDT CPT-18689 Bladder Scan 15:57:26 CDT
--- OUTSIDE RECORDS SUMMARY | 2017-03-08 06:49 | XMS REPORT | Referral Summary ---
Author Author [facility] Organization [facility] Address Unknown Phone Unavailable Care Team Providers Care Career And Technology Education Teacher Name Role Phone No PCP, States Primary Care Physician [phone] Encounter VC Date(s): 05/12/15 - 05/12/15 [facility] [address] [place] [address] [place] [id number] Discharge Diagnosis: Dysuria Discharge Diagnosis: Urethral syndrome Discharge Disposition: 01-Home or Self Care Attending Physician: Chato Cochran JR, MD Admitting Physician: Chato Cochran JR, MD Referring Physician: Ruperto Dozier MD Vital Signs Most recent to 1 oldest [Reference Range]: Temperature Oral 36.7 degC [35.8-37.3 degC] (05/12/15 1:21 PM) Peripheral Pulse 72 bpm Rate [60-100 bpm] (05/12/15 1:21 PM) Respiratory Rate 16 br/min [14-20 br/min] (05/12/15 1:21 PM) Blood Pressure 118/76 mmHg [90-140/60-90 mmHg] (05/12/15 1:21 PM) Problem List Condition Effective Dates Status [...] 120 caps, 2 Refill(s ), ALEN, eRx: [facility] #[id number], TAKE TWO CAPSULES BY MOUTH TWICE A DAY Start Date: 03/26/15 Status: Ordered estradiol 2 mg oral tablet See Instructions, TAKE ONE AND ONE-HALF (1 & 1/2) TABLET BY MOUTH DAILY NEED APPOINTMENT BEFORE FURTHER REFILLS, # 45 tabs, eRx: [facility] #[id number], TAKE ONE AND ONE-HALF (1 & 1/2) [...] TWICE A DAY, # 240 tabs, eRx: [facility] #[id number], TAKE TWO TABLETS BY MOUTH TWICE A DAY Start Date: 07/01/15 Status: Ordered spironolactone 25 mg oral tablet See Instructions, TAKE TWO TABLETS BY MOUTH TWICE A DAY, # 240 tabs, eRx: [facility] #[id number], TAKE TWO TABLETS BY MOUTH TWICE A DAY Start Date: 05/11/15 Status: Ordered Synthroid 100 mcg (0.1 mg) oral tablet See Instructions, TAKE ONE TABLET BY MOUTH ONCE A DAY, # 30 tabs, 5 Refill(s), ALEN, eRx: [facility] #[id number], TAKE ONE TABLET BY MOUTH ONCE A DAY Start Date: 04/01/15 Status: Ordered tamsulosin 0.4 mg oral capsule 0.4 mg 1 caps, Oral, Bedtime (once a day), # 30 caps, 0 Refill(s), Pharmacy: [facility] #[id number], 1 caps Oral Bedtime (once a day) Start Date: 05/12/15 Status: Ordered Topamax 100 mg oral tablet 1 tabs, Oral, TID, 0 Refill(s) Start Date: 03/25/14 Status: Ordered valACYclovir 1 g oral tablet See Instructions, TAKE TWO TABLETS BY MOUTH TWICE A DAY NEEDS APPT WITH PCP PRIOR TO ADDITIONAL REFILLS, # 8 tabs, 2 Refill(s), Pharmacy: [facility] # [id number], TAKE TWO TABLETS BY MOUTH TWICE A DAY; NEEDS APPT WITH PCP PRIOR TO ADDITIONAL REFILLS Start Date: 07/01/15 Status: Ordered Ventolin HFA 90 mcg/inh inhalation aerosol 2 puffs, Inhalation, q4hr, as needed for wheezing, # 18 g, 2 Refill(s), Pharmacy : [facility] #[id number], 2 puffs Inhalation q4hr,PRN:as needed for wheezing Start Date: 09/17/14 Status: Ordered Results Urinalysis Most recent to 1 oldest [Reference Range]: UA Color Yellow (05/12/15 1:27 PM) UA Appear Clear (05/12/15 1:27 PM) UA pH [5.0-8.0] 7.0 (05/12/15 1:27 PM) UA Leuk Est Negative [Negative] (05/12/15 1:27 PM) UA Nitrite Negative [Negative] (05/12/15 1:27 PM) UA Protein Negative [Negative] (05/12/15 1:27 PM) UA Glucose Negative [Negative] (05/12/15 1:27 PM) UA Ketones Trace [Negative] *ABN* (05/12/15 1:27 PM) UA Urobilinogen 0.2 mg/dL (05/12/15 1:27 PM) UA Bili [Negative] Negative (05/12/15 1:27 PM) UA Blood Negative (05/12/15 1:27 PM) UA Spec Grav 1.020 [1.003-1.030] (05/12/15 1:27 PM) Type Clean Catch (05/12/15 1:27 PM) Immunizations Vaccine Date Refusal Reason influenza virus vaccine, inactivated 07/29/14 influenza virus vaccine, live 08/02/13 influenza virus vaccine, live 07/24/12 pneumococcal 23-polyvalent vaccine 08/24/06 Procedures Procedure Date Related Diagnosis Body Site hydrodistention, and SLT laser vaporation 04/30/08 S/P cystoscopy, urethral calibration, and 04/30/08 dilation S/P knee surgery, left 2007 ankle surgery 2004 colon surgery 2002 AL with BSO 2000 S/P knee surgery, right 1982 Appendectomy 1978 Tonsillectomy without adenoidectomy 1966 breast biopsy1 Hysterectomy2 Laparotomy S/P sinus surgery 1x3 2comp 2002 Social History Social History Type Response Smoking Status Never smoker Assessment and Plan Extracted from: Title: Ambulatory Patient Education Author: Chato Cochran JR, MD Date : 05/12/15 Follow Up With: Where: When: Ruperto Dozier [address] [place] [address] Drive; [place] [address] Business (1) Within 3 to 5 days Comments: Follow Up With: Where: When: Chato Cochran [address] [place] [address] Drive; Via [facility] [place] [id number] [place] ([employer] In 4 weeks 06/09/2015 Comments: Extracted from: Title: Office Visit Note Author: Chato Cochran JR, MD Date: 05/12/15 Assessment/Plan Dysuria the urinalysis I ordered today showed no evidence of infection present. Ordered: Office Visit Level 4 New [id number] Urethral syndrome bimanual pelvic examination revealed no leakage on stress incontinence test. As previously mentioned after she stopped taking the Flomax that the sensation of urinary leakage startedi 15 minute face to face visit with 2/3 of the visit devoted to counseling. Patient will be restarted and on Flomax again and recheck in my office in 4 weeks. Patient instructed to reduce intake of caffeine highly acidic and highly spiced food. If this problem persist will consider doing cystoscopy This patient's is a very difficult to assess and make a diagnosisand it took me almost 30-40 minutes before I was done with her interview and examination. Ordered: tamsulosin, 0.4 mg 1 caps, Oral, Bedtime (once a day), # 30 caps, 0 Refill(s), Pharmacy: [facility] #[id number], 1 caps Oral Bedtime (once a day) Office Visit Level 4 New [id number]
--- OUTSIDE RECORDS SUMMARY | 2017-03-08 06:49 | XMS REPORT | Referral Summary ---
Author Author [facility] Organization [facility] Address Unknown Phone Unavailable Care Team Providers Care Parking Lot Attendant And Cashier Name Role Phone No PCP, States Primary Care Physician [phone] Encounter VC Date(s): 08/10/15 - 08/10/15 [facility] [address] [place], [place] [address] Discharge Diagnosis: Constipation Discharge Diagnosis: Loss of [...] 2 Refill(s ), ALEN, eRx: [facility] #[id number], TAKE TWO CAPSULES BY MOUTH TWICE A DAY Start Date: 03/26/15 Status: Ordered estradiol 2 mg oral tablet See Instructions, TAKE ONE AND ONE-HALF (1 & 1/2) TABLET BY MOUTH DAILY NEED APPOINTMENT BEFORE FURTHER REFILLS, # 45 tabs, eRx: [facility] #[id number], TAKE ONE AND ONE-HALF (1 & 1/2) TABLET BY MOUTH DAILY NEED APPOINTMENT BEFORE FURTHER REFI... Start Date: 07/01/15 Status: Ordered estradiol 2 mg oral tablet See Instructions, TAKE ONE AND ONE-HALF TABLETS BY MOUTH EVERY DAY NEEDS APPT PRIOR TO ADDITIONAL REFILLS, # 45 tabs, 0 Refill(s), Pharmacy: [facility] #[id number], TAKE ONE AND ONE-HALF TABLETS BY MOUTH [...] TWICE A DAY, # 240 tabs, eRx: [facility] #[id number], TAKE TWO TABLETS BY MOUTH TWICE A DAY Start Date: 07/01/15 Status: Ordered spironolactone 25 mg oral tablet See Instructions, TAKE TWO TABLETS BY MOUTH TWICE A DAY, # 240 tabs, eRx: [facility] #[id number], TAKE TWO TABLETS BY MOUTH TWICE A DAY Start Date: 05/11/15 Status: Ordered Synthroid 100 mcg (0.1 mg) oral tablet See Instructions, TAKE ONE TABLET BY MOUTH ONCE A DAY, # 30 tabs, 5 Refill(s), ALEN, eRx: [facility] #[id number], TAKE ONE TABLET BY MOUTH ONCE A DAY Start Date: 04/01/15 Status: Ordered tamsulosin 0.4 mg oral capsule 0.4 mg 1 caps, Oral, Bedtime (once a day), # 30 caps, 0 Refill(s), Pharmacy: [facility] #[id number], 1 caps Oral Bedtime (once a day) Start Date: 05/12/15 Status: Ordered Topamax 100 mg oral tablet 1 tabs, Oral, TID, 0 Refill(s) Start Date: 03/25/14 Status: Ordered valACYclovir 1 g oral tablet See Instructions, TAKE TWO TABLETS BY MOUTH TWICE A DAY NEEDS APPT WITH PCP PRIOR TO ADDITIONAL REFILLS, # 8 tabs, 2 Refill(s), Pharmacy: [facility] # [id number], TAKE TWO TABLETS BY MOUTH TWICE A DAY; NEEDS APPT WITH PCP PRIOR TO ADDITIONAL REFILLS Start Date: 07/01/15 Status: Ordered Ventolin HFA 90 mcg/inh inhalation aerosol 2 puffs, Inhalation, q4hr, as needed for wheezing, # 18 g, 2 Refill(s), Pharmacy : [facility] #[id number], 2 puffs Inhalation q4hr,PRN:as needed for wheezing [...] than 50 percent of the time was [id number] counseling. Extracted from: Title: Ambulatory Patient Education [...] (g) Cheerios, 1 cup / 3 g Salem Flakes cereal, 1 cup / 0.7 g [...] Flour tortilla, 1 oz / 0.9 g [place] tortilla, 1 small / 1.5 g Hamburger or hotdog bun, 1 small / 0.9 g Fruits / Dietary Fiber (g) Apple with skin, 1 medium / 4.4 g Sweetened applesauce, cup / 1.5 g Banana, medium / 1.5 g Grapes, 10 grapes / 0.4 g Grand, 1 small / 2.3 g Raisin, 1.5 oz / 1.6 g Melon, 1 cup / 1.4 g Vegetables / Dietary Fiber (g) Green beans (canned), cup / 1.3 g Carrots (cooked), cup / 2.3 g Broccoli (cooked), cup / 2.8 g Peas (cooked), cup / 4.4 g Mashed potatoes, cup / 1.6 g Lettuce, 1 cup / 0.5 g [place] (canned), cup / 1.6 g Tomato, cup / 1.1 g Document Released: 10/09/2006 Document Revised: 04/09/2013 Document Reviewed: ExitCare Patient Information [facility]. This information is not intended to replace [...] your health care provider may recommend taking abnc-hps-dltajwc laxative medicines to help you have bowel movements. Prescription medicines may be prescribed if jkjh-gpe-rpifnqp medicines do not work. HOME CARE INSTRUCTIONS Eat foods that have a lot of fiber, such as fruits, vegetables, whole grains, and beans. Limit foods high in fat and processed sugars, such as tongan fries, hamburgers, cookies, candies, and soda. A fiber supplement may be added to your diet if you cannot get enough fiber from foods. Drink enough fluids to keep your urine clear or pale yellow. Exercise regularly or as directed by your health care provider. Go to the restroom when you have the urge to go. Do not hold it. Only take ciys-awp-oyddtrj or prescription medicines as directed by your [...] Released: 07/07/2005 Document Revised: 10/14/2014 Document Reviewed: ExitCare Patient Information 2015 [facility], [facility]. This information is not intended to replace advice given to you by your health care provider. Make sure you discuss any questions you have with your health care provider. No follow up information was provided.
[2017-03-08] MEDS ORDERED: LIDOCAINE 1% (10mg/ml) 2ml SDV INJ ONE (07:00)
[2017-03-08] MEDS ORDERED: LR 1,000 ML IV SCH (07:00)
[2017-03-08 07:36] LABS: ANION GAP 13 MEQ/L (5-15); BUN/CREATININE RATIO 20 RATIO (6-26); CALCIUM 9.8 MG/DL (8.4-10.2); CHLORIDE 111 MEQ/L (98-107); CO2 - CARBON DIOXIDE 22 MEQ/L (22-30); CREATININE 0.8 MG/DL (0.7-1.2); GLOMERULAR FILTRATION RATE 75; GLUCOSE 107 MG/DL (65-110); POTASSIUM 4.4 MEQ/L (3.6-5); SODIUM 146 MEQ/L (134-144)
--- NOTE | 2017-03-08 07:58 | ANESPREOP ---
Anesthesia Record Date and Time DATE: 03/08/17 TIME: 07:53 Proposed Surgical Procedure RT SHOULDER SCOPE Allergies: Coded Allergies: ziprasidone (Verified Allergy, Severe, ALTERED MENTAL STATUS, 03/08/17) Penicillins (Verified Allergy, Unknown, HIVES, 03/08/17) phenobarbital (Verified Allergy, Unknown, N/V, 03/08/17) Ht/Wt/BMI Height: 5 ' 0.00 " Weight: 65.200 kg BMI: 28.1 kg/m2 Vital Signs Date Time Temp Pulse Resp B/P Pulse Ox O2 Delivery O2 Flow Rate FiO2 03/08/17 07:05 97.6 65 14 140/77 100 Room Air Medications Inpatient Medications Current Medications Medications (Trade) Dose Ordered Sig/Maude Start Time Stop Time Status Last Admin Dose Admin Lactated Ringer's (Lactated Ringers) 1,000 ml @ 50 mls/hr Q20H 03/08/17 07:00 03/08/17 07:45 50 MLS/HR Albuterol Sulfate (Proair HFA 90 mcg/actuation) 8.5 Gm Hfa.aer.ad, 2 PUFF INH Q6H PRN for ASTHMA, (Reported) Last Taken: on 03/07/17 2100 Aripiprazole (Abilify) 5 Mg Tablet, 5 MG PO DAILY, (Reported) Last Taken: on 03/08/17 0700 Benztropine Mesylate (Benztropine Mesylate) 0.5 Mg Tablet, 1 TAB PO HS, (Reported) Last Taken: on 03/07/17 1800 Betaxolol Hcl (Betaxolol Hcl) 10 Mg Tablet, 0.5 TAB PO DAILY, (Reported) Last Taken: on 03/08/17 0700 Buspirone HCl (Buspirone HCl) 15 Mg Tablet, 2 TAB PO BID, (Reported) Last Taken: on 03/08/17 0700 Citalopram Hydrobromide (Citalopram HBr) 40 Mg Tablet, 1 TAB PO DAILY, (Reported) Last Taken: on 03/08/17 0700 Estradiol (Estradiol) 2 Mg Tablet, 2 MG PO DAILY, (Reported) Last Taken: on 03/07/17 1000 Levothyroxine Sodium (Levothyroxine Sodium) 88 Mcg Tablet, 88 MCG PO ACB, (Reported) Once daily before breakfast. Last Taken: on 03/08/17 0700 Meloxicam (Meloxicam) 15 Mg Tablet, 15 MG PO DAILY, (Reported) Last Taken: on 03/06/17 Metformin HCl (Metformin HCl) 500 Mg Tablet, 0.5 TAB PO BIDWM, (Reported) Take one tablet, by mouth, 2 times a day with Meals. Last Taken: on 03/07/17 1000 Mirabegron (Myrbetriq) 50 Mg Tab.er.24h, 50 MG PO DAILY, (Reported) Last Taken: on 03/07/17 1000 Phenytoin Sodium Extended (Dilantin) 100 Mg Capsule, 2 CAP PO BID, (Reported) Last Taken: on 03/08/17 0700 Potassium Chloride (Potassium Chloride) 10 Meq Tablet.sa, 3 TAB PO BID, (Reported) Last Taken: on 03/07/17 1800 Pravastatin Sodium (Pravastatin Sodium) 40 Mg Tablet, 40 MG PO HS, (Reported) Take 1 tablet, by mouth, daily at bedtime. Last Taken: on 03/07/17 1800 Spironolactone (Spironolactone) 25 Mg Tablet, 25 MG PO BID, (Reported) Last Taken: on 03/07/17 1800 Topiramate (Topiramate) 200 Mg Tablet, 1 TAB PO BID, (Reported) Last Taken: on 03/08/17 0700 Discontinued Medications Buspirone Hcl (Buspirone Hcl) 30 Mg Tablet, 30 MG PO BID, (Reported) Citalopram (Celexa) 20 Mg Tablet, 30 MG PO DAILY, (Reported) Levothyroxine Sodium (Synthroid) 100 Mcg Tablet, 100 MCG PO ACB, (Reported) Topiramate (Topamax) 100 Mg Tablet, 100 MG PO TID, (Reported) Currently on Beta Kirstel: Yes Beta Kristel Last Taken: MAR 08 2017 AT 0700 Medical/Surgical History Anesthesia PMH: Reports: *Angina (ABOUT A WEEK AGO-SEES DR RYAN-STATES IT IS PLEURISY), *Hypertension, Anesthesia Reactions (HAD TO SPEND THE NIGHT AFTER OVARIAN CYST SURGERY. 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 smoked today?: No Use Chewing Tobacco?: No Second Hand Exposure: No Substance Use Type: does not use Alcohol Intake: none HX of Last Menstrual Period: 1989 Past Surgical History Orthopedic Surgeries: Yes - KNEE SCOPE; RT KNEE TENDON REPAIR; TENDON REPAIR OF ANKLE; PIN IN ANKLE Abdominal Surgeries: Yes - APPY; COLON ADHESION REMOVAL Genitourinary Surgeries: No Cardiac Surgeries: No Endocrine Surgeries: No Reproductive Surgeries: Yes - ABD HYST ,LAPAROSCOPIC OVARIAN CYST Neurological Surgeries: No Ear Surgeries: No Nose Surgeries: No Throat Surgeries: Yes - TONSILS Other Surgeries: Yes - BREAST LUMPECTOMY X3 Family Hx of Anesthesia Advers: other (pt reports mother was slow to awake from anesthesia) Hx of Motion Sickness: No Pertinent Findings Laboratory Tests 03/08/17 07:21 Physical Exam Respiratory: Lungs clear Cardiovascular: FOUND Regular rate, rhythm Airway Assessment Mallampati Score: II TMD: 3 Fingerbreadths Neck Extension: Good Overall Assessment: No Airway Concerns ASA: 3 Plan Anesthesia Plan: GETA Peripheral Nerve Block: Interscalene Block - RT Discussion Discussed risks/options/alternatives of anesthesia and questions answered. Patient consents. Nursing pain assessment noted. Attestation Statement Prior to the delivery of any anesthetic medication, I examined the patient, developed the plan, obtained the patient's consent and discussed the risk and benefits of the procedure with the patient/guardian. GINO RAMON March 08, 2017 07:57
[2017-03-08] MEDS ORDERED: EPINEPHRINE 1mg/ml TOPICAL SOLN 30ml ONE (08:02)
[2017-03-08] MEDS ORDERED: ROCURONIUM 50mg/5ml INJECTION IV ONE (08:10)
[2017-03-08] MEDS ORDERED: LIDOCAINE 2% (20mg/ml) 5ml PF SDV ONE (08:10)
[2017-03-08] MEDS ORDERED: PROPOFOL 200mg 20 ML IV ONE (08:10)
[2017-03-08] MEDS ORDERED: FENTANYL 100mcg/2ml INJECTION ONE (08:13)
[2017-03-08] MEDS ORDERED: KETAMINE 500mg/10ml INJECTION ONE (08:13)
[2017-03-08] MEDS ORDERED: MIDAZOLAM 2mg/2ml INJECTION IV ONE (08:15)
[2017-03-08] MEDS ORDERED: ROPIVACAINE 0.5% (5mg/ml) 30ml INJ ONE (08:18)
--- NOTE | 2017-03-08 08:44 | ANESPD ---
Peripheral Nerve Blockade Physician: Evnagelist Stark MD Date: 03/08/17 Discussion Discussed risks/options/alternatives of anesthesia and questions answered. Patient consents. Nursing pain assessment noted. Block Start: 08:26 Block Stop: 08:37 Block Employed: [employer] Indication: post-operative pain Approach: right side confirmed Position: semi-yuen Patient: Consent, risks/benefits discussed, Informed, post block act. discussed Monitors: EKG, SpO2, NIBP IV Sedation: Yes Midazolam (mg): 2 Initial Vital Signs First Documented Vital Signs Date Time Temp Pulse Resp B/P Pulse Ox O2 Delivery O2 Flow Rate FiO2 03/08/17 07:05 97.6 65 14 140/77 100 Room Air Post Vital Signs Vital Signs Date Time Temp Pulse Resp B/P Pulse Ox O2 Delivery O2 Flow Rate FiO2 03/08/17 08:19 16 03/08/17 08:18 58 124/68 100 Room Air 03/08/17 07:05 97.6 Prep: chlorhexadine/ETOH Ultrasound Used?: Yes Nerve Simulator mA set at: 0.6 Abates at (mA): 0.3 Needle Depth: 1 Muscle Response: Yes Parathesia/Pain: none Injectate Ropivacaine (%): 0.5 Ropivacaine (mL): 25 Was Epi 1:200,000 Used?: No Injection Injection made incrementally with constant monitoring and aspiration every [3] ml. GINO RAMON March 08, 2017 08:44
[2017-03-08] MEDS ORDERED: CLINDAMYCIN 600mg IVPB 50 ML IV ONE (10:00)
[2017-03-08] MEDS ORDERED: KETOROLAC 30mg/ml INJECTION ONE (10:28)
[2017-03-08] MEDS ORDERED: ONDA4TAB4 PO (10:46)
[2017-03-08] MEDS ORDERED: OXYC1TAB8 PO (10:46)
--- NOTE | 2017-03-08 10:48 | PDPROCED ---
Immediate Operative Note DATE: 03/08/17 TIME: 10:46 Preop Diagnosis: RIGHT SHOULDER PAIN IMPINGMENT Postop Diagnosis: Right shoulder adhesive capsulitis, impingement Surgical Procedures: R Arthroscopic SAD (capsiluar release, manipulation under anesthesia) Surgeon: Mi Apartment House Manager: JEWELL Orellana Anesthesia: General (with regional block) Complications: none Estimated Blood Loss see anesthesia MAURICIO ARCHER March 08, 2017 10:48
--- NOTE | 2017-03-08 11:05 | NUR ---
STATUS PATIENT COUGHING UP CLEAR MUCOUS. STATES SHE FEELS LIKE SHE NEEDS HER PERSONAL INHALER. ORDER RECEIVED FROM BEBETO LANCASTER CRNA TO ALLOW PATIENT TO USE OWN PROAIR INHALER AT THIS TIME. WILL CONTINUE TO MONITOR
[2017-03-08] MEDS ORDERED: HYDROMORPHONE 2mg/ml INJECTION IV PRN (11:15)
--- NOTE | 2017-03-08 12:17 | ANESPO ---
Post-Op Note Date 03/08/17 Time: 11:53 Status Pt Participated in Evaluation: Pt participated in person Vital Signs Date Time Temp Pulse Resp B/P Pulse Ox O2 Delivery O2 Flow Rate FiO2 03/08/17 11:41 97.5 78 14 119/70 94 Room Air 03/08/17 11:25 2.00 Respiratory Function: Airway patent Cardiovascular Function: Regular pulse Mental Status: Alert/oriented Pain Level Intensity: 2 Hydration: IV infusing Complications during Recovery None apparent Follow-Up Instructions Instructions Per Surgeon BEBETO LANCASTER CRNA March 08, 2017 12:17
[2017-03-08] MEDS ORDERED: OXYCODONE/APAP 5mg/325mg TABLET PO PRN (12:45)
--- NOTE | 2017-03-08 13:53 | OPNOTEF ---
DATE OF OPERATION 03/08/2017 PREOPERATIVE DIAGNOSIS 1. Right shoulder pain. 2. Right shoulder rotator cuff impingement. 3. Right shoulder adhesive capsulitis. POSTOPERATIVE DIAGNOSIS 1. Right shoulder pain. 2. Right shoulder rotator cuff impingement. 3. Right shoulder adhesive capsulitis. PROCEDURE 1. Right shoulder arthroscopic capsular release. 2. Right shoulder arthroscopic subacromial decompression with bursectomy. 3. Right shoulder manipulation under anesthesia. SURGEON Evangelist Stark MD SULFUR BURNER Torres Argueta PA-C ANESTHESIA General with regional block FLUIDS Please refer to Anesthesia chart. EBL Minimal. TOURNIQUET None used. COMPLICATIONS None. CONDITION Stable to recovery room. DESCRIPTION OF PROCEDURE The patient was identified in preop holding area. The operative extremity was identified and appropriately marked. Risks, benefits, alternatives and potential complications were discussed and informed consent was obtained. The patient was taken to the operating theatre, placed supine on the operating table. Appropriate cardiorespiratory monitors were applied. General anesthesia was induced. A regional block had been placed in preop holding. The patient was positioned in a seated beach chair position with all bony prominences well padded. The head and neck were secured in a safe position. Right upper extremity was sterilely prepped and draped in the usual fashion. Surgical time-out was performed, confirmed with myself, the fashion artist and circulating nurse. Preoperative antibiotics were given. Examination under anesthesia revealed diminished range of motion. Forward flexion was available to 130, external rotation to 45, internal rotation was fine and able to get behind the hip. In 90 degrees of abduction, she had 75 degrees of internal rotation. Gentle manipulation under anesthesia was performed primarily in forward flexion. A palpable pop was felt and forward range of motion was thoroughly improved. She still continued to have tightness in external rotation, however. A standard posterior arthroscopic portal was established. The arthroscope was inserted and the glenohumeral joint was insufflated with saline. Hematoma was present from manipulation. An anterior portal was established and the joint was lavaged. There was a small amount of capsular tearing posterior and inferiorly extending through the axillary recess secondary to the manipulation. The labrum anterior, inferior and posterior was intact. Superior labrum was intact. Long head biceps tendon was normal in its intraarticular and extraarticular portions. The rotator interval was contracted. Radiofrequency ablation device was utilized to release the rotator interval tissue and all adhesions down to the level of the middle glenohumeral ligament, releasing superior and anterior to the subscapularis and superior to the anterior border of the supraspinatus. Repeat examination at this time now showed external rotation to 90 degrees at the side. There was no evidence of subscapularis tear or injury. Articular side of the rotator cuff was otherwise intact as well. The arthroscope was then withdrawn and placed in the subacromial space. There was severe bursitis present in the subacromial space with marked thickened and inflammatory bursa. A lateral portal was established. A combination of the anterior portal and lateral portals were utilized to perform a thorough bursectomy to include the anterior, lateral and posterior gutters. The bursal aspect of the rotator cuff was noted to be intact. The CA ligament was noted to be frayed. This was released with a radiofrequency ablation device revealing a moderate to large size anterolateral subacromial spur. A 5-5 bur was inserted and acromioplasty was performed to convert this to a type 1 flat acromion. This dissection was carried all the way over to the AC joint. No significant inferior spurring of the lateral clavicle was evident. The shoulder was then copiously lavaged, irrigated and drained. All arthroscopic instruments were removed. Repeat examination showed full range of motion of the right shoulder in all planes. Portals were closed with nylon sutures. Sterile dressings were applied followed by a sling. The patient was awakened from anesthesia and taken to the recovery room in stable and satisfactory condition. JAMEY
== END 2017-03-08 13:40 | disposition home or self-care (01) ==
LOC: NSC 06:42
PROVIDERS: ATTEND Orthopaedic Surgery
DX: M75.01 Adhesive capsulitis of right shoulder (principal); M75.41 Impingement syndrome of right shoulder; M25.511 Pain in right shoulder; I10 Essential (primary) hypertension; E11.9 Type 2 diabetes mellitus without complications; J45.909 Unspecified asthma, uncomplicated; G47.30 Sleep apnea, unspecified; F32.9 Major depressive disorder, single episode, unspecified; F41.9 Anxiety disorder, unspecified; Z79.84 Long term (current) use of oral hypoglycemic drugs; Z79.899 Other long term (current) drug therapy; Z79.1 Long term (current) use of non-steroidal anti-inflammatories (NSAID); Z88.0 Allergy status to penicillin; Z88.8 Allergy status to other drugs, medicaments and biological substances; Z90.710 Acquired absence of both cervix and uterus
CPT/HCPCS: 29825; 29826; 36415; 80048; A9270; J1170; J1885; J2250; J2704; J2795; J3010; J7120